=== PATIENT | female | born 1955 | race Caucasian/White ===

== ENCOUNTER 2016-04-24 15:33 | Inpatient (IN) ==
[2016-04-24] MEDS ORDERED: 0.9 % Sodium Chloride 1,000 ML IVC SCH (15:45)
--- NOTE | 2016-04-24 15:47 | Emergency Department Note ---
Disposition Clinical Impression: Sepsis Qualifiers: Sepsis type: sepsis due to unspecified organism Qualified Code(s): A41.9 - Sepsis, unspecified organism UTI (urinary tract infection) Qualifiers: Urinary tract infection type: site unspecified Hematuria presence: with hematuria Qualified Code(s): N39.0 - Urinary tract infection, site not specified Disposition: Admitted As Inpatient Condition: Fair Referrals: NO,PCP [Non-Partnered Physician] - Forms: ED Satisfaction Letter Time of Disposition: 17:42 Neuro HPI - General Chief Complaint: ED Neuro Symptoms/Deficit Stated Complaint: AMS Time Seen by Provider: 04/24/16 15:38 Nursing Notes Reviewed: Yes Vital Signs Reviewed: Yes - History of Present Illness HPI Narrative: Ms. Marrero, a 61yo female, presents from home by POV with CC: altered mental status. Onset appx 1 hour prior to arrival. The patient, patient's sister-in- law, the patient's friends were driving when patient had acute onset of her symptoms in the vehicle. Preceeding symptoms: patient stated she was feeling sick. They returned home, patient vomited x1 (non-bloody, non-bilious). Both patient's [id number] and friend state that she has had previous episodes of altered mentation secondary to UTI including urosepsis; they note this event is more pronounced than the others. At baseline, patient is nonambulatory requiring wheelchair, left, etc. PMH: MS, UTI, dehydration. 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 - Related Data Home Medications: Home Medications Medication Instructions Recorded Confirmed Apixaban [Eliquis] 2.5 mg PO BID 03/02/16 03/02/16 Allergies/Adverse Reactions: Allergies Allergy/AdvReac Type Severity Reaction Status Date / Time No Known Allergies Allergy Verified 03/02/16 17:25 Limitations: ROS unobtainable due to patients medical condition Past Medical History - Past Medical History Medical history: Reports: other Psychiatric history: Reports: no psych history - Social History Smoking Status: Never smoker Smokeless Tobacco Status: No Alcohol use: Reports: none Drug use: Reports: none Course Course Narrative: On exam, patient is speaking through clenched teeth with rigid flexion of her elbows and wrists bilaterally (i.e. no unilateral weakness or paralysis). No receptive or expressive aphasia - She is alert, oriented, and able to answer questions appropriately. When a nurse on the far side of the patient's room asked for the patient's name, the patient answered appropriately, through clenched teeth. Seizure unlikely - No tonic-clonic activity plus no patient history of seizures. Per patient's family and friend, she is not ambulatory - explaining her bilateral lower extremity weakness. She does not withdraw to LE pain but voices that it hurts. Patient meets SIRS criteria: tachycardia + tachypnea. Initial concern is CVA vs UTI causing sepsis vs electrolyte disturbance. Spoke with nursing; patient urine appeared dark, cloudy, and foul smelling. CT head without contrast showed no acute intracranial abnormalities. UA shows UTI --> SEPSIS. Vital Signs Temperature 98.4 F 04/24/16 15:35 Pulse Rate 134 04/24/16 15:35 Respiratory Rate 24 04/24/16 15:35 Blood Pressure 146/93 04/24/16 15:35 O2 Sat by Pulse Oximetry 96 04/24/16 15:35 Temperature 98.4 F 04/24/16 15:35 Pulse Rate 147 04/24/16 17:02 Respiratory Rate 20 04/24/16 17:02 Blood Pressure 169/75 04/24/16 17:02 O2 Sat by Pulse Oximetry 99 04/24/16 17:02 Oxygen Delivery Oxygen Delivery Nasal Cannula Neuro Symptoms/Deficit - Medical Records Medical records reviewed: Yes I reviewed the patient's medical records. - Lab Data Lab results reviewed: Yes I reviewed the patient's lab results. Result diagrams: 04/24/16 15:39 04/24/16 15:39 Lab Results 04/24/16 04/24/16 04/24/16 Range/Units 15:39 15:39 15:39 WBC 7.0 (4.3-11.1) K/mcL RBC 5.22 H (3.82-4.97) M/mcL Hgb 14.6 (11.5-15.4) g/dL Hct 46.0 H (35.3-44.9) % MCV 88.1 (83.0-100.0) fL MCH 28.0 (28.0-33.3) pg MCHC 31.7 (31.6-35.5) g/dL RDW 13.2 (11.5-14.5) % Plt Count 278 (140-400) K/mcL MPV 8.6 L (9.4-12.4) fL Immature Gran % 1.0 (0-4) % Seg Neutrophils % 92.0 % Lymphocytes % 6.0 % Monocytes % 0.4 % Eosinophils % 0.3 % Basophils % 0.3 % Neutrophils # 6.4 (1.6-8.9) K/mcL Lymphocytes # 0.4 L (0.6-4.6) K/mcL Monocytes # 0.0 (0.0-1.3) K/mcL Eosinophils # 0.0 (0.0-0.6) K/mcL Basophils # 0.0 (0.0-0.2) K/mcL PT 13.2 H (9.4-12.1) Seconds INR 1.2 APTT 30.3 (26.0-36.0) Seconds ABG pH (7.32-7.45) pH Units ABG pCO2 (35-45) mmHg ABG pO2 (85-104) mmHg ABG HCO3 (21-27) mEQ/L ABG Total CO2 (20-26) mEq/L ABG O2 Saturation (95-98) % ABG Base Excess (-2.0 to 3.0) mEq/L Blood Gas Modality Inspired O2 % Sodium 139 (136-145) mEq/L Potassium 4.6 H (3.5-4.5) mEq/L Chloride 107 (98-109) mEq/L Carbon Dioxide 19 (19-29) mEq/L BUN 17 (7-20) mg/dL Creatinine 0.79 (0.57-1.11) mg/dL Est GFR ( Amer) > 60 (> 60) Est GFR (Non-Af Amer) > 60 (> 60) BUN/Creatinine Ratio 22 (6-26) Glucose 125 H (70-99) mg/dL Calculated Osmolality 291 (280-300) Lactic Acid (0.5-2.2) mmol/L Calcium 9.5 (8.6-10.8) mg/dL Phosphorus 3.6 (2.3-4.7) mg/dL Magnesium 2.0 (1.6-2.6) mg/dL Total Bilirubin 0.6 (0.2-1.2) mg/dL Direct Bilirubin 0.2 (0.0-0.5) mg/dL Indirect Bilirubin 0.4 (0.0-1.2) mg/dL AST 32 (5-34) Units/L ALT 14 (0-55) Units/L Alkaline Phosphatase 164 H (38-126) Units/L Troponin I (0-0.03) ng/mL Serum Total Protein 8.0 (6.0-8.3) g/dL Albumin 3.4 L (3.5-5.0) g/dL Globulin 4.6 H (2.4-3.5) g/dL Albumin/Globulin Ratio 0.7 L (1.1-2.2) Urine Color (Yellow) Urine Clarity (Clear) Urine pH (5.0-8.0) pH Units Ur Specific [place] (1.010-1.025) Urine Protein (Neg-Trace) mg/dL Urine Glucose (UA) (Normal) mg/dL Urine Ketones (Negative) mg/dL Urine Blood (Negative) Urine Nitrite (Negative) Urine Bilirubin (Negative) Urine Urobilinogen (Normal) mg/dL Ur Leukocyte Esterase (Negative) Urine Microscopic RBC (0-3) per hpf Urine Microscopic WBC (0-3) per hpf Ur Squamous Epith Cells (None-Few) per lpf Urine Bacteria (None-Few) per hpf Hyaline Casts (None-Few) per lpf Ur Culture Indicated? (NO) 04/24/16 04/24/16 04/24/16 Range/Units 15:39 15:46 16:32 WBC (4.3-11.1) K/mcL RBC (3.82-4.97) M/mcL Hgb (11.5-15.4) g/dL Hct (35.3-44.9) % MCV (83.0-100.0) fL MCH (28.0-33.3) pg MCHC (31.6-35.5) g/dL RDW (11.5-14.5) % Plt Count (140-400) K/mcL MPV (9.4-12.4) fL Immature Gran % (0-4) % Seg Neutrophils % % Lymphocytes % % Monocytes % % Eosinophils % % Basophils % % Neutrophils # (1.6-8.9) K/mcL Lymphocytes # (0.6-4.6) K/mcL Monocytes # (0.0-1.3) K/mcL Eosinophils # (0.0-0.6) K/mcL Basophils # (0.0-0.2) K/mcL PT (9.4-12.1) Seconds INR APTT (26.0-36.0) Seconds ABG pH 7.39 (7.32-7.45) pH Units ABG pCO2 36 (35-45) mmHg ABG pO2 72 L (85-104) mmHg ABG HCO3 21.8 (21-27) mEQ/L ABG Total CO2 22.9 (20-26) mEq/L ABG O2 Saturation 94 L (95-98) % ABG Base Excess -2.6 L (-2.0 to 3.0) mEq/L Blood Gas Modality N/C Inspired O2 28 % Sodium (136-145) mEq/L Potassium (3.5-4.5) mEq/L Chloride (98-109) mEq/L Carbon Dioxide (19-29) mEq/L BUN (7-20) mg/dL Creatinine (0.57-1.11) mg/dL Est GFR ( Amer) (> 60) Est GFR (Non-Af Amer) (> 60) BUN/Creatinine Ratio (6-26) Glucose (70-99) mg/dL Calculated Osmolality (280-300) Lactic Acid (0.5-2.2) mmol/L Calcium (8.6-10.8) mg/dL Phosphorus (2.3-4.7) mg/dL Magnesium (1.6-2.6) mg/dL Total Bilirubin (0.2-1.2) mg/dL Direct Bilirubin (0.0-0.5) mg/dL Indirect Bilirubin (0.0-1.2) mg/dL AST (5-34) Units/L ALT (0-55) Units/L Alkaline Phosphatase (38-126) Units/L Troponin I 0.00 (0-0.03) ng/mL Serum Total Protein (6.0-8.3) g/dL Albumin (3.5-5.0) g/dL Globulin (2.4-3.5) g/dL Albumin/Globulin Ratio (1.1-2.2) Urine Color Yellow (Yellow) Urine Clarity Turbid A (Clear) Urine pH 5.5 (5.0-8.0) pH Units Ur Specific [place] 1.012 (1.010-1.025) Urine Protein 30 H (Neg-Trace) mg/dL Urine Glucose (UA) Normal (Normal) mg/dL Urine Ketones Negative (Negative) mg/dL Urine Blood Large H (Negative) Urine Nitrite Negative (Negative) Urine Bilirubin Negative (Negative) Urine Urobilinogen Normal (Normal) mg/dL Ur Leukocyte Esterase Large H (Negative) Urine Microscopic RBC TNTC H (0-3) per hpf Urine Microscopic WBC TNTC H (0-3) per hpf Ur Squamous Epith Cells Moderate H (None-Few) per lpf Urine Bacteria Many H (None-Few) per hpf Hyaline Casts None Seen (None-Few) per lpf Ur Culture Indicated? YES A (NO) 04/24/16 Range/Units 17:15 WBC (4.3-11.1) K/mcL RBC (3.82-4.97) M/mcL Hgb (11.5-15.4) g/dL Hct (35.3-44.9) % MCV (83.0-100.0) fL MCH (28.0-33.3) pg MCHC (31.6-35.5) g/dL RDW (11.5-14.5) % Plt Count (140-400) K/mcL MPV (9.4-12.4) fL Immature Gran % (0-4) % Seg Neutrophils % % Lymphocytes % % Monocytes % % Eosinophils % % Basophils % % Neutrophils # (1.6-8.9) K/mcL Lymphocytes # (0.6-4.6) K/mcL Monocytes # (0.0-1.3) K/mcL Eosinophils # (0.0-0.6) K/mcL Basophils # (0.0-0.2) K/mcL PT (9.4-12.1) Seconds INR APTT (26.0-36.0) Seconds ABG pH (7.32-7.45) pH Units ABG pCO2 (35-45) mmHg ABG pO2 (85-104) mmHg ABG HCO3 (21-27) mEQ/L ABG Total CO2 (20-26) mEq/L ABG O2 Saturation (95-98) % ABG Base Excess (-2.0 to 3.0) mEq/L Blood Gas Modality Inspired O2 % Sodium (136-145) mEq/L Potassium (3.5-4.5) mEq/L Chloride (98-109) mEq/L Carbon Dioxide (19-29) mEq/L BUN (7-20) mg/dL Creatinine (0.57-1.11) mg/dL Est GFR ( Amer) (> 60) Est GFR (Non-Af Amer) (> 60) BUN/Creatinine Ratio (6-26) Glucose (70-99) mg/dL Calculated Osmolality (280-300) Lactic Acid 3.2 H (0.5-2.2) mmol/L Calcium (8.6-10.8) mg/dL Phosphorus (2.3-4.7) mg/dL Magnesium (1.6-2.6) mg/dL Total Bilirubin (0.2-1.2) mg/dL Direct Bilirubin (0.0-0.5) mg/dL Indirect Bilirubin (0.0-1.2) mg/dL AST (5-34) Units/L ALT (0-55) Units/L Alkaline Phosphatase (38-126) Units/L Troponin I (0-0.03) ng/mL Serum Total Protein (6.0-8.3) g/dL Albumin (3.5-5.0) g/dL Globulin (2.4-3.5) g/dL Albumin/Globulin Ratio (1.1-2.2) Urine Color (Yellow) Urine Clarity (Clear) Urine pH (5.0-8.0) pH Units Ur Specific [place] (1.010-1.025) Urine Protein (Neg-Trace) mg/dL Urine Glucose (UA) (Normal) mg/dL Urine Ketones (Negative) mg/dL Urine Blood (Negative) Urine Nitrite (Negative) Urine Bilirubin (Negative) Urine Urobilinogen (Normal) mg/dL Ur Leukocyte Esterase (Negative) Urine Microscopic RBC (0-3) per hpf Urine Microscopic WBC (0-3) per hpf Ur Squamous Epith Cells (None-Few) per lpf Urine Bacteria (None-Few) per hpf Hyaline Casts (None-Few) per lpf Ur Culture Indicated? (NO) - Radiology Data Radiology results reviewed: Yes I reviewed the patient's radiology results. - EKG Data EKG attestation: Yes I reviewed and interpreted this EKG. EKG results narrative: EKG data 04/24/16 at 15:45 shows sinus tachycardia with a rate of 133. Left axis. Normal intervals. Nonspecific ST-T changes. Compared to previous dated 04/04/2015 showing no acute ischemic changes in comparison. TPA Checklist - LKW: 3-4.5 hrs Add. Contraindications Patient/family understanding: The patient/family members have been counseled and understood the risk, benefit , and alternatives of treatment.
[2016-04-24 15:49] LABS: ABG Base Excess -2.6 mEq/L (-2.0 to 3.0); ABG HCO3 21.8 mEQ/L (21-27); ABG Oxygen Saturation 94 % (95-98); ABG PCO2 36 mmHg (35-45); ABG PH 7.39 pH Units (7.32-7.45); ABG PO2 72 mmHg (85-104); ABG TCO2 22.9 mEq/L (20-26)
[2016-04-24 15:50] LABS: Blood Gas FiO2 28 %
[2016-04-24 15:52] LABS: Basophils % 0.3 %; Eosinophils % 0.3 %; Hemoglobin 14.6 g/dL (11.5-15.4); Lymphocytes # 0.4 K/mcL (0.6-4.6); Mean Corpuscular HGB Conc 31.7 g/dL (31.6-35.5); Mean Corpuscular Volume 88.1 fL (83.0-100.0); Mean Platelet Volume 8.6 fL (9.4-12.4); Monocytes % 0.4 %; Neutrophils # 6.4 K/mcL (1.6-8.9); Platelet Count 278 K/mcL (140-400); Red Blood Count 5.22 M/mcL (3.82-4.97); Red Cell Distribution Width 13.2 % (11.5-14.5)
[2016-04-24 15:57] LABS: INR 1.2; Prothrombin Time 13.2 Seconds (9.4-12.1)
[2016-04-24 16:00] LABS: Activated Partial Thrombo Time 30.3 Seconds (26.0-36.0)
[2016-04-24] MEDS ORDERED: *HR* LORazepam 2 MG/ML VIAL IVP ONE (16:05)
[2016-04-24 16:08] LABS: Alanine Aminotransferase 14 Units/L (0-55); Albumin 3.4 g/dL (3.5-5.0); Albumin/Globulin Ratio 0.7 (1.1-2.2); Alkaline Phosphatase 164 Units/L (38-126); Aspartate Amino Transferase 32 Units/L (5-34); BUN/Creatinine Ratio 22 (6-26); Bilirubin,Direct 0.2 mg/dL (0.0-0.5); Bilirubin,Indirect 0.4 mg/dL (0.0-1.2); Bilirubin,Total 0.6 mg/dL (0.2-1.2); Blood Urea Nitrogen 17 mg/dL (7-20); Calcium 9.5 mg/dL (8.6-10.8); Carbon Dioxide 19 mEq/L (19-29); Chloride 107 mEq/L (98-109); Globulin 4.6 g/dL (2.4-3.5); Glucose 125 mg/dL (70-99); Osmolality,Calculated 291 (280-300); Phosphorous 3.6 mg/dL (2.3-4.7); Sodium 139 mEq/L (136-145); eGFR For African Americans > 60 (> 60); eGFR For Non-African Americans > 60 (> 60)
[2016-04-24 16:14] LABS: Potassium 4.6 mEq/L (3.5-4.5)
--- NOTE | 2016-04-24 16:31 | Emergency Department Note ---
Disposition Clinical Impression: Sepsis, UTI (urinary tract infection) Disposition: Admitted As Inpatient Condition: Fair General Adult HPI - General Chief complaint: ED Neuro Symptoms/Deficit Stated complaint: AMS Time Seen by Provider: 04/24/16 15:38 Source: patient Limitations: physical limitation - History of Present Illness Pain Scale: 0 - Related Data Home Medications Medication Instructions Recorded Confirmed Apixaban [Eliquis] 5 mg PO DAILY 03/02/16 04/24/16 Modafinil [Provigil] 100 mg PO DAILY PRN 04/24/16 04/24/16 Allergies Allergy/AdvReac Type Severity Reaction Status Date / Time No Known Allergies Allergy Verified 03/02/16 17:25 Past Medical History - Past Medical History Medical history: Reports: other Psychiatric history: Reports: no psych history - Social History Smoking Status: Never smoker Smokeless Tobacco Status: No Alcohol use: Reports: none Drug use: Reports: none Physical Exam - General Limitations: physical limitation General appearance: alert, in no apparent distress Course - Reevaluation(s) Reevaluation #1: Patient presents to emergency room with a report of altered mental status. I spoke with family members who were present with the patient when she started getting sick. They were driving in a car when the patient started saying that she was feeling sick. They ended up taking her home and she started getting sick with vomiting. When she arrives here she has vomitus on her shirt and as were moving her over to the gurney she has a large diarrheal bowel movement. As we evaluate the patient we see that she has clenched teeth and her speech is abnormal because she speaking through these clenched teeth, however everything she says is appropriate. Furthermore she answers all questions appropriately, she even calls out her name when the nurse on the other side of the room asked another nurse what the patient's name was. So we are not seeing a receptive aphasia and we are not seeing an expressive aphasia. Patient is lying in the bed with both of her arms clenched up. They are drawn up so hard it was difficult for the tach to get the patient's shirt off and get the gown on. So here we are not seeing weakness of the upper extremities at all. Furthermore I do not think this represents seizure activity because both arms are clenched yet the patient is conscious. We found no lateralizing signs on the extremity examination as the patient moved both arms. She was not really able to move either leg but family and friends at the bedside are telling me that this is normal because the patient has multiple sclerosis and is essentially bedridden and transfers to a wheelchair for movement. This picture is not indicative of an acute CVA, therefore I did not call a stroke alert. According to family she is done something similar to this a couple of times in the past and it has always been related to an infection, particularly urinary tract infection. I initiated a septic workup and we will get a head CT as well. I am wondering if there is not some carpopedal spasm going on here as result of some hyperventilation so we did give the patient a milligram of Ativan as well to calm her down and we are waiting to see the effect of that treatment. At this time the patient is hemodynamically stable and again shows no signs of acute CVA. Time: 16:31 Reevaluation #2: Workup comes back showing a negative head CT. There is clearly indication of urinary tract infection based on this Sigala catheter urine specimen. Patient has a history of presenting like this with UTIs in the past. I suspect the infectious issue aggravates her multiple sclerosis. After having been given Ativan her arms are relaxed and moving and her jaw is no longer clenched but her speech is still mumbling although she answers questions appropriately and follows commands appropriately. We started Rocephin to treat the infection and will be arranging to have the patient admitted to the hospital. Time: 17:29 Vital Signs Temperature 98.4 F 04/24/16 15:35 Pulse Rate 134 04/24/16 15:35 Respiratory Rate 24 04/24/16 15:35 Blood Pressure 146/93 04/24/16 15:35 O2 Sat by Pulse Oximetry 96 04/24/16 15:35 Temperature 97.5 F L 04/26/16 11:53 Pulse Rate 97 04/26/16 11:53 Respiratory Rate 18 04/26/16 11:53 Blood Pressure 134/86 04/26/16 11:53 O2 Sat by Pulse Oximetry 97 04/26/16 12:48 Oxygen Delivery Oxygen Delivery Nasal Cannula Medical Decision Making - Lab Data Result diagrams: 04/26/16 05:01 04/26/16 05:01 Lab Results 04/24/16 04/24/16 04/24/16 Range/Units 15:00 15:34 15:39 WBC 7.0 (4.3-11.1) K/mcL RBC 5.22 H (3.82-4.97) M/mcL Hgb 14.6 (11.5-15.4) g/dL Hct 46.0 H (35.3-44.9) % MCV 88.1 (83.0-100.0) fL MCH 28.0 (28.0-33.3) pg MCHC 31.7 (31.6-35.5) g/dL RDW 13.2 (11.5-14.5) % Plt Count 278 (140-400) K/mcL MPV 8.6 L (9.4-12.4) fL Immature Gran % 1.0 (0-4) % Seg Neutrophils % 92.0 % Lymphocytes % 6.0 % Monocytes % 0.4 % Eosinophils % 0.3 % Basophils % 0.3 % Neutrophils # 6.4 (1.6-8.9) K/mcL Lymphocytes # 0.4 L (0.6-4.6) K/mcL Monocytes # 0.0 (0.0-1.3) K/mcL Eosinophils # 0.0 (0.0-0.6) K/mcL Basophils # 0.0 (0.0-0.2) K/mcL PT (9.4-12.1) Seconds INR APTT (26.0-36.0) Seconds ABG pH (7.32-7.45) pH Units ABG pCO2 (35-45) mmHg ABG pO2 (85-104) mmHg ABG HCO3 (21-27) mEQ/L ABG Total CO2 (20-26) mEq/L ABG O2 Saturation (95-98) % ABG Base Excess (-2.0 to 3.0) mEq/L Blood Gas Modality Inspired O2 % Sodium (136-145) mEq/L Potassium (3.5-4.5) mEq/L Chloride (98-109) mEq/L Carbon Dioxide (19-29) mEq/L BUN (7-20) mg/dL Creatinine (0.57-1.11) mg/dL Est GFR ( Amer) (> 60) Est GFR (Non-Af Amer) (> 60) BUN/Creatinine Ratio (6-26) Glucose (70-99) mg/dL POC Glucose 122 H (58-89) Est Mean Plasma Glucose 91 mg/dl Hemoglobin A1c 4.8 ( - 5.6) % Calculated Osmolality (280-300) Lactic Acid (0.5-2.2) mmol/L Calcium (8.6-10.8) mg/dL Phosphorus (2.3-4.7) mg/dL Magnesium (1.6-2.6) mg/dL Total Bilirubin (0.2-1.2) mg/dL Direct Bilirubin (0.0-0.5) mg/dL Indirect Bilirubin (0.0-1.2) mg/dL AST (5-34) Units/L ALT (0-55) Units/L Alkaline Phosphatase (38-126) Units/L Creatine Kinase (29-168) Units/L Troponin I (0-0.03) ng/mL Serum Total Protein (6.0-8.3) g/dL Albumin (3.5-5.0) g/dL Globulin (2.4-3.5) g/dL Albumin/Globulin Ratio (1.1-2.2) Prolactin (5.18-26.53) ng/mL Urine Color (Yellow) Urine Clarity (Clear) Urine pH (5.0-8.0) pH Units Ur Specific [place] (1.010-1.025) Urine Protein (Neg-Trace) mg/dL Urine Glucose (UA) (Normal) mg/dL Urine Ketones (Negative) mg/dL Urine Blood (Negative) Urine Nitrite (Negative) Urine Bilirubin (Negative) Urine Urobilinogen (Normal) mg/dL Ur Leukocyte Esterase (Negative) Urine Microscopic RBC (0-3) per hpf Urine Microscopic WBC (0-3) per hpf Ur Squamous Epith Cells (None-Few) per lpf Urine Bacteria (None-Few) per hpf Hyaline Casts (None-Few) per lpf Ur Culture Indicated? (NO) Urine Opiates Screen (Ysdozx=408) ng/mL Ur Barbiturates Screen (Mjprqa=981) ng/mL Ur Phencyclidine Scrn (Cutoff=25) ng/mL Ur Amphetamines Screen (Azzkas=2809) ng/mL U Benzodiazepines Scrn (Fciguu=492) ng/mL Urine Cocaine Screen (Cutoff= 300) ng/mL U Marijuana (THC) Screen (Cutoff = 50) ng/mL A. baumannii (TEM-PCR) (Not Detect) Virgie albicans (PCR) (Not Detect) C. glabrata (PCR) (Not Detect) C. krusei (PCR) (Not Detect) C. parapsilosis (PCR) (Not Detect) C. tropicalis (PCR) (Not Detect) Enterobacteriac sp PCR (Not Detect) E. cloacae complex PCR (Not Detect) Enterococcus sp PCR (Not Detect) E. coli (PCR) (Not Detect) H. influenzae DNA (Not Detect) Klebsiella oxytoca PCR (Not Detect) Klebsiella pneumoniae (Not Detect) Listeria (PCR) (Not Detect) N. meningitidis (PCR) (Not Detect) Proteus species (PCR) (Not Detect) Serratia marcescens PCR (Not Detect) Staphylococcus sp PCR (Not Detect) Staph aureus (PCR) (Not Detect) MRS (TEM-PCR) (Not Detect) Streptococcus sp PCR (Not Detect) Group A Strep DNA (Not Detect) Group B Strep (PCR) (Not Detect) Strep pneumoniae (PCR) (Not Detect) P. aeruginosa (TEM-PCR) (Not Detect) VRE (PCR) (Not Detect) KPC (blaKPC) Detect PCR (Not Detect) 04/24/16 04/24/16 04/24/16 Range/Units 15:39 15:39 15:39 WBC (4.3-11.1) K/mcL RBC (3.82-4.97) M/mcL Hgb (11.5-15.4) g/dL Hct (35.3-44.9) % MCV (83.0-100.0) fL MCH (28.0-33.3) pg MCHC (31.6-35.5) g/dL RDW (11.5-14.5) % Plt Count (140-400) K/mcL MPV (9.4-12.4) fL Immature Gran % (0-4) % Seg Neutrophils % % Lymphocytes % % Monocytes % % Eosinophils % % Basophils % % Neutrophils # (1.6-8.9) K/mcL Lymphocytes # (0.6-4.6) K/mcL Monocytes # (0.0-1.3) K/mcL Eosinophils # (0.0-0.6) K/mcL Basophils # (0.0-0.2) K/mcL PT 13.2 H (9.4-12.1) Seconds INR 1.2 APTT 30.3 (26.0-36.0) Seconds ABG pH (7.32-7.45) pH Units ABG pCO2 (35-45) mmHg ABG pO2 (85-104) mmHg ABG HCO3 (21-27) mEQ/L ABG Total CO2 (20-26) mEq/L ABG O2 Saturation (95-98) % ABG Base Excess (-2.0 to 3.0) mEq/L Blood Gas Modality Inspired O2 % Sodium 139 (136-145) mEq/L Potassium 4.6 H (3.5-4.5) mEq/L Chloride 107 (98-109) mEq/L Carbon Dioxide 19 (19-29) mEq/L BUN 17 (7-20) mg/dL Creatinine 0.79 (0.57-1.11) mg/dL Est GFR ( Amer) > 60 (> 60) Est GFR (Non-Af Amer) > 60 (> 60) BUN/Creatinine Ratio 22 (6-26) Glucose 125 H (70-99) mg/dL POC Glucose (58-89) Est Mean Plasma Glucose mg/dl Hemoglobin A1c ( - 5.6) % Calculated Osmolality 291 (280-300) Lactic Acid (0.5-2.2) mmol/L Calcium 9.5 (8.6-10.8) mg/dL Phosphorus 3.6 (2.3-4.7) mg/dL Magnesium 2.0 (1.6-2.6) mg/dL Total Bilirubin 0.6 (0.2-1.2) mg/dL Direct Bilirubin 0.2 (0.0-0.5) mg/dL Indirect Bilirubin 0.4 (0.0-1.2) mg/dL AST 32 (5-34) Units/L ALT 14 (0-55) Units/L Alkaline Phosphatase 164 H (38-126) Units/L Creatine Kinase 17 L (29-168) Units/L Troponin I 0.00 (0-0.03) ng/mL Serum Total Protein 8.0 (6.0-8.3) g/dL Albumin 3.4 L (3.5-5.0) g/dL Globulin 4.6 H (2.4-3.5) g/dL Albumin/Globulin Ratio 0.7 L (1.1-2.2) Prolactin 44.78 H (5.18-26.53) ng/mL Urine Color (Yellow) Urine Clarity (Clear) Urine pH (5.0-8.0) pH Units Ur Specific [place] (1.010-1.025) Urine Protein (Neg-Trace) mg/dL Urine Glucose (UA) (Normal) mg/dL Urine Ketones (Negative) mg/dL Urine Blood (Negative) Urine Nitrite (Negative) Urine Bilirubin (Negative) Urine Urobilinogen (Normal) mg/dL Ur Leukocyte Esterase (Negative) Urine Microscopic RBC (0-3) per hpf Urine Microscopic WBC (0-3) per hpf Ur Squamous Epith Cells (None-Few) per lpf Urine Bacteria (None-Few) per hpf Hyaline Casts (None-Few) per lpf Ur Culture Indicated? (NO) Urine Opiates Screen (Gcuulf=435) ng/mL Ur Barbiturates Screen (Nltdwq=779) ng/mL Ur Phencyclidine Scrn (Cutoff=25) ng/mL Ur Amphetamines Screen (Xbgevj=0748) ng/mL U Benzodiazepines Scrn (Ggsdji=554) ng/mL Urine Cocaine Screen (Cutoff= 300) ng/mL U Marijuana (THC) Screen (Cutoff = 50) ng/mL A. baumannii (TEM-PCR) (Not Detect) Virgie albicans (PCR) (Not Detect) C. glabrata (PCR) (Not Detect) C. krusei (PCR) (Not Detect) C. parapsilosis (PCR) (Not Detect) C. tropicalis (PCR) (Not Detect) Enterobacteriac sp PCR (Not Detect) E. cloacae complex PCR (Not Detect) Enterococcus sp PCR (Not Detect) E. coli (PCR) (Not Detect) H. influenzae DNA (Not Detect) Klebsiella oxytoca PCR (Not Detect) Klebsiella pneumoniae (Not Detect) Listeria (PCR) (Not Detect) N. meningitidis (PCR) (Not Detect) Proteus species (PCR) (Not Detect) Serratia marcescens PCR (Not Detect) Staphylococcus sp PCR (Not Detect) Staph aureus (PCR) (Not Detect) MRS (TEM-PCR) (Not Detect) Streptococcus sp PCR (Not Detect) Group A Strep DNA (Not Detect) Group B Strep (PCR) (Not Detect) Strep pneumoniae (PCR) (Not Detect) P. aeruginosa (TEM-PCR) (Not Detect) VRE (PCR) (Not Detect) KPC (blaKPC) Detect PCR (Not Detect) 04/24/16 04/24/16 04/24/16 Range/Units 15:46 16:32 16:32 WBC (4.3-11.1) K/mcL RBC (3.82-4.97) M/mcL Hgb (11.5-15.4) g/dL Hct (35.3-44.9) % MCV (83.0-100.0) fL MCH (28.0-33.3) pg MCHC (31.6-35.5) g/dL RDW (11.5-14.5) % Plt Count (140-400) K/mcL MPV (9.4-12.4) fL Immature Gran % (0-4) % Seg Neutrophils % % Lymphocytes % % Monocytes % % Eosinophils % % Basophils % % Neutrophils # (1.6-8.9) K/mcL Lymphocytes # (0.6-4.6) K/mcL Monocytes # (0.0-1.3) K/mcL Eosinophils # (0.0-0.6) K/mcL Basophils # (0.0-0.2) K/mcL PT (9.4-12.1) Seconds INR APTT (26.0-36.0) Seconds ABG pH 7.39 (7.32-7.45) pH Units ABG pCO2 36 (35-45) mmHg ABG pO2 72 L (85-104) mmHg ABG HCO3 21.8 (21-27) mEQ/L ABG Total CO2 22.9 (20-26) mEq/L ABG O2 Saturation 94 L (95-98) % ABG Base Excess -2.6 L (-2.0 to 3.0) mEq/L Blood Gas Modality N/C Inspired O2 28 % Sodium (136-145) mEq/L Potassium (3.5-4.5) mEq/L Chloride (98-109) mEq/L Carbon Dioxide (19-29) mEq/L BUN (7-20) mg/dL Creatinine (0.57-1.11) mg/dL Est GFR ( Amer) (> 60) Est GFR (Non-Af Amer) (> 60) BUN/Creatinine Ratio (6-26) Glucose (70-99) mg/dL POC Glucose (58-89) Est Mean Plasma Glucose mg/dl Hemoglobin A1c ( - 5.6) % Calculated Osmolality (280-300) Lactic Acid (0.5-2.2) mmol/L Calcium (8.6-10.8) mg/dL Phosphorus (2.3-4.7) mg/dL Magnesium (1.6-2.6) mg/dL Total Bilirubin (0.2-1.2) mg/dL Direct Bilirubin (0.0-0.5) mg/dL Indirect Bilirubin (0.0-1.2) mg/dL AST (5-34) Units/L ALT (0-55) Units/L Alkaline Phosphatase (38-126) Units/L Creatine Kinase (29-168) Units/L Troponin I (0-0.03) ng/mL Serum Total Protein (6.0-8.3) g/dL Albumin (3.5-5.0) g/dL Globulin (2.4-3.5) g/dL Albumin/Globulin Ratio (1.1-2.2) Prolactin (5.18-26.53) ng/mL Urine Color Yellow (Yellow) Urine Clarity Turbid A (Clear) Urine pH 5.5 (5.0-8.0) pH Units Ur Specific [place] 1.012 (1.010-1.025) Urine Protein 30 H (Neg-Trace) mg/dL Urine Glucose (UA) Normal (Normal) mg/dL Urine Ketones Negative (Negative) mg/dL Urine Blood Large H (Negative) Urine Nitrite Negative (Negative) Urine Bilirubin Negative (Negative) Urine Urobilinogen Normal (Normal) mg/dL Ur Leukocyte Esterase Large H (Negative) Urine Microscopic RBC TNTC H (0-3) per hpf Urine Microscopic WBC TNTC H (0-3) per hpf Ur Squamous Epith Cells Moderate H (None-Few) per lpf Urine Bacteria Many H (None-Few) per hpf Hyaline Casts None Seen (None-Few) per lpf Ur Culture Indicated? YES A (NO) Urine Opiates Screen Negative (Hdigoa=191) ng/mL Ur Barbiturates Screen Negative (Jjojov=134) ng/mL Ur Phencyclidine Scrn Negative (Cutoff=25) ng/mL Ur Amphetamines Screen Negative (Owgwwi=0144) ng/mL U Benzodiazepines Scrn Negative (Oahehu=613) ng/mL Urine Cocaine Screen Negative (Cutoff= 300) ng/mL U Marijuana (THC) Screen Negative (Cutoff = 50) ng/mL A. baumannii (TEM-PCR) (Not Detect) Virgie albicans (PCR) (Not Detect) C. glabrata (PCR) (Not Detect) C. krusei (PCR) (Not Detect) C. parapsilosis (PCR) (Not Detect) C. tropicalis (PCR) (Not Detect) Enterobacteriac sp PCR (Not Detect) E. cloacae complex PCR (Not Detect) Enterococcus sp PCR (Not Detect) E. coli (PCR) (Not Detect) H. influenzae DNA (Not Detect) Klebsiella oxytoca PCR (Not Detect) Klebsiella pneumoniae (Not Detect) Listeria (PCR) (Not Detect) N. meningitidis (PCR) (Not Detect) Proteus species (PCR) (Not Detect) Serratia marcescens PCR (Not Detect) Staphylococcus sp PCR (Not Detect) Staph aureus (PCR) (Not Detect) MRS (TEM-PCR) (Not Detect) Streptococcus sp PCR (Not Detect) Group A Strep DNA (Not Detect) Group B Strep (PCR) (Not Detect) Strep pneumoniae (PCR) (Not Detect) P. aeruginosa (TEM-PCR) (Not Detect) VRE (PCR) (Not Detect) KPC (blaKPC) Detect PCR (Not Detect) 04/24/16 04/24/16 Range/Units 17:15 17:15 WBC (4.3-11.1) K/mcL RBC (3.82-4.97) M/mcL Hgb (11.5-15.4) g/dL Hct (35.3-44.9) % MCV (83.0-100.0) fL MCH (28.0-33.3) pg MCHC (31.6-35.5) g/dL RDW (11.5-14.5) % Plt Count (140-400) K/mcL MPV (9.4-12.4) fL Immature Gran % (0-4) % Seg Neutrophils % % Lymphocytes % % Monocytes % % Eosinophils % % Basophils % % Neutrophils # (1.6-8.9) K/mcL Lymphocytes # (0.6-4.6) K/mcL Monocytes # (0.0-1.3) K/mcL Eosinophils # (0.0-0.6) K/mcL Basophils # (0.0-0.2) K/mcL PT (9.4-12.1) Seconds INR APTT (26.0-36.0) Seconds ABG pH (7.32-7.45) pH Units ABG pCO2 (35-45) mmHg ABG pO2 (85-104) mmHg ABG HCO3 (21-27) mEQ/L ABG Total CO2 (20-26) mEq/L ABG O2 Saturation (95-98) % ABG Base Excess (-2.0 to 3.0) mEq/L Blood Gas Modality Inspired O2 % Sodium (136-145) mEq/L Potassium (3.5-4.5) mEq/L Chloride (98-109) mEq/L Carbon Dioxide (19-29) mEq/L BUN (7-20) mg/dL Creatinine (0.57-1.11) mg/dL Est GFR ( Amer) (> 60) Est GFR (Non-Af Amer) (> 60) BUN/Creatinine Ratio (6-26) Glucose (70-99) mg/dL POC Glucose (58-89) Est Mean Plasma Glucose mg/dl Hemoglobin A1c ( - 5.6) % Calculated Osmolality (280-300) Lactic Acid 3.2 H (0.5-2.2) mmol/L Calcium (8.6-10.8) mg/dL Phosphorus (2.3-4.7) mg/dL Magnesium (1.6-2.6) mg/dL Total Bilirubin (0.2-1.2) mg/dL Direct Bilirubin (0.0-0.5) mg/dL Indirect Bilirubin (0.0-1.2) mg/dL AST (5-34) Units/L ALT (0-55) Units/L Alkaline Phosphatase (38-126) Units/L Creatine Kinase (29-168) Units/L Troponin I (0-0.03) ng/mL Serum Total Protein (6.0-8.3) g/dL Albumin (3.5-5.0) g/dL Globulin (2.4-3.5) g/dL Albumin/Globulin Ratio (1.1-2.2) Prolactin (5.18-26.53) ng/mL Urine Color (Yellow) Urine Clarity (Clear) Urine pH (5.0-8.0) pH Units Ur Specific [place] (1.010-1.025) Urine Protein (Neg-Trace) mg/dL Urine Glucose (UA) (Normal) mg/dL Urine Ketones (Negative) mg/dL Urine Blood (Negative) Urine Nitrite (Negative) Urine Bilirubin (Negative) Urine Urobilinogen (Normal) mg/dL Ur Leukocyte Esterase (Negative) Urine Microscopic RBC (0-3) per hpf Urine Microscopic WBC (0-3) per hpf Ur Squamous Epith Cells (None-Few) per lpf Urine Bacteria (None-Few) per hpf Hyaline Casts (None-Few) per lpf Ur Culture Indicated? (NO) Urine Opiates Screen (Noisah=805) ng/mL Ur Barbiturates Screen (Xgtlhm=433) ng/mL Ur Phencyclidine Scrn (Cutoff=25) ng/mL Ur Amphetamines Screen (Bqzscl=0978) ng/mL U Benzodiazepines Scrn (Noqumy=914) ng/mL Urine Cocaine Screen (Cutoff= 300) ng/mL U Marijuana (THC) Screen (Cutoff = 50) ng/mL A. baumannii (TEM-PCR) Not Detected (Not Detect) Virgie albicans (PCR) Not Detected (Not Detect) C. glabrata (PCR) Not Detected (Not Detect) C. krusei (PCR) Not Detected (Not Detect) C. parapsilosis (PCR) Not Detected (Not Detect) C. tropicalis (PCR) Not Detected (Not Detect) Enterobacteriac sp PCR DETECTED A (Not Detect) E. cloacae complex PCR Not Detected (Not Detect) Enterococcus sp PCR Not Detected (Not Detect) E. coli (PCR) DETECTED A (Not Detect) H. influenzae DNA Not Detected (Not Detect) Klebsiella oxytoca PCR Not Detected (Not Detect) Klebsiella pneumoniae Not Detected (Not Detect) Listeria (PCR) Not Detected (Not Detect) N. meningitidis (PCR) Not Detected (Not Detect) Proteus species (PCR) Not Detected (Not Detect) Serratia marcescens PCR Not Detected (Not Detect) Staphylococcus sp PCR Not Detected (Not Detect) Staph aureus (PCR) Not Detected (Not Detect) MRS (TEM-PCR) N/A (Not Detect) Streptococcus sp PCR Not Detected (Not Detect) Group A Strep DNA Not Detected (Not Detect) Group B Strep (PCR) Not Detected (Not Detect) Strep pneumoniae (PCR) Not Detected (Not Detect) P. aeruginosa (TEM-PCR) Not Detected (Not Detect) VRE (PCR) N/A (Not Detect) KPC (blaKPC) Detect PCR Not Detected (Not Detect) Attestation Statement - Attestation Attestation: I, Dr. Cheung, examined this patient [id number] and my medical decision- making was reviewed with Dr. Lee, Resident Physician. I agree with the documented findings, disposition and treatment plan as described except to the extent set forth below. Please see my progress notes for details.
[2016-04-24 16:42] LABS: Bilirubin,Urine Negative (Negative); Blood,Urine Large (Negative); Clarity,Urine Turbid (Clear); Color,Urine Yellow (Yellow); Glucose,Urine (UA) Normal (Normal); Ketones,Urine Negative (Negative); Leukocyte Esterase,Urine Large (Negative); Nitrite,Urine Negative (Negative); PH,Urine 5.5 pH Units (5.0-8.0); Protein,Urine 30 mg/dL (Neg-Trace); Specific Gravity,Urine 1.012 (1.010-1.025); Urobilinogen,Urine Normal (Normal)
[2016-04-24 16:43] LABS: Bacteria,Urine Many per hpf (None-Few); Hyaline Casts,Urine None Seen per lpf (None-Few); RBC,Urine TNTC per hpf (0-3); Squamous Epithelial Cell,Urine Moderate per lpf (None-Few); WBC,Urine TNTC per hpf (0-3)
[2016-04-24 18:15] LABS: Creatine Kinase 17 Units/L (29-168)
[2016-04-24 18:34] LABS: Prolactin 44.78 ng/mL (5.18-26.53)
[2016-04-24] MEDS ORDERED: Ipratropium/Albuterol Neb 3 ML IH PRN (19:54)
[2016-04-24] MEDS ORDERED: Naloxone 0.4 MG/ML INJ IVP PRN (19:54)
[2016-04-24] MEDS ORDERED: *HR* Morphine 2 MG/ML SYRINGE IVP PRN (19:54)
[2016-04-24] MEDS ORDERED: Ondansetron 4 MG/2 ML VIAL IVP PRN (19:54)
[2016-04-24] MEDS ORDERED: *HR* OxyCODONE Immed Rel 5 MG TABLET PO PRN (19:54)
[2016-04-24] MEDS ORDERED: Benzonatate 100 MG CAPSULE PO PRN (19:54)
[2016-04-24] MEDS ORDERED: Acetaminophen 325 MG TABLET PO PRN (19:54)
[2016-04-24] MEDS ORDERED: *HR* LORazepam 2 MG/ML VIAL IVP PRN (19:54)
--- NOTE | 2016-04-24 20:18 | Internal Med History&Physical ---
Date of Encounter: 04/24/16 Time of Encounter: 20:00 Assessment and Plan (1) Altered mental status Current visit: Yes Status: Acute . Qualifiers: Altered mental status type: transient alteration of awareness Qualified Code(s): R40.4 - Transient alteration of awareness (2) Encephalopathy acute Current visit: Yes Status: Acute . (3) Delirium due to general medical condition Current visit: Yes Status: Acute . (4) History of recurrent UTI (urinary tract infection) Current visit: Yes Status: Chronic . (5) Chronic anticoagulation Current visit: Yes Status: Chronic . (6) Obesity (BMI 30-39.9) Current visit: Yes Status: Chronic . (7) Tonic seizure Current visit: Yes Status: Acute . (8) Sepsis Current visit: Yes Status: Acute . Qualifiers: Sepsis type: sepsis due to unspecified organism Qualified Code(s): A41.9 - Sepsis, unspecified organism (9) UTI (urinary tract infection) Current visit: Yes Status: Acute . Qualifiers: Urinary tract infection type: site unspecified Hematuria presence: with hematuria Qualified Code(s): N39.0 - Urinary tract infection, site not specified; R31.9 - Hematuria, unspecified (10) Folate deficiency Current visit: Yes Status: Chronic . (11) History of deep vein thrombosis (DVT) of lower extremity Current visit: Yes Status: Chronic . (12) Vitamin D deficiency Current visit: Yes Status: Chronic . (13) Debility, unspecified Current visit: Yes Status: Acute . (14) Bedridden Current visit: Yes Status: Chronic . (15) History of multiple sclerosis Current visit: Yes Status: Chronic . Internal Medicine - H&P: HPI Chief complaint: Altered mental status Admitted From: Emergency Dept Plans for Post Hospital Care: Home History of present illness: Ms. Vega is a 61 year old female with history significant for end-stage refractory multiple sclerosis, H/O DVT+PE, chronic anticoagulation (Eliquis), hypersomnia/sleepiness, debility multifactorial/bedridden, folic acid deficiency , vitamin D deficiency, osteoarthritis, osteopenia, neurogenic bladder/ incontinence, H/O frequent UTIs, obesity, nonsmoker The patient was visited and interviewed and examined. The patient was found to be acutely encephalopathic. Mild delirium. Garbled speech. Manifesting acute sedation status post intravenous Ativan for seizure activity. Presents thus as a limited historian of circumstances and events. The patient is admitted to [facility] via the emergency department initially presented in the company of family with concern pertaining to acute alteration in mental status. The patient's family members were driving in a car when the patient began to experience a feeling of Nausea and Lightheadedness. They Have Returned Home and She Became Acutely Ill with Intractable Nausea and nonbloody, nonbilious Vomiting. On arrival to the emergency department before being transferred by diann to her examination room she became incontinent and had a large diarrheal bowel movement. She then began to manifest a tonic-seizure with clenched teeth with arms, elbows and wrists bilaterally held close to body in a rigid,flexion, tonic posture. She was unable to move arms or legs or torso in this patient posturing. There is no focal lateralizing processes a history of long-standing multiple sclerosis was suspected proven refractory to medical interventions. She has been characterized by family as being essentially bedridden and requiring distance in all activities of daily living considering how to care for mobility. The family of further volunteer that patient has had similar episodes of acute unresponsiveness and a rigid posturing and alteration in mental status associated with the infections particularly urinary tract infections at least on 2 other occasions. It was no report of any prodrome of fevers chills or sweats. There is no prodromal complaints of nausea vomiting diarrhea. There is no prodromal complaints of alteration of mental status acute unresponsiveness and weakness slurring of speech. There has been no acute changes and daily medical therapies nor dietary or recreational indiscretions reported. The patient remained alert and was able to communicate. Speaking through clenched teeth she reportedly responded to questions directed to her. Findings in the ED: Temperature 98.4 pulse 130-147 and respirations 20-24 BP 146-169/75-93 O2 saturation 96-99% 2 L nasal cannula. WBC 7 hemoglobin 14.6 hematocrit 46 platelets 278,000. MPV 8.6. Differential normal. PT 13.2 INR 1.2 PTT 30.6. Metabolic panel normal. Potassium noted at 4.6. BUN 17 creatinine 0.79. Glucose 125 osmolality 291. Alkaline phosphatase 164. Albumin 3.4 protein 8.0. Globulin 4.6. Arterial blood gas pH 7.39 PCO2 36 PO2 72 bicarbonate 21.8. O2 saturation 94% 2 L per nasal cannula. Troponin 0.00. Urinalysis turbid appearance large protein and large blood and large leukocyte esterase. RBC and WBC too numerous to count. Moderate squamous epithelial cells. Many bacteria. Portable chest x-ray showed no acute or active cardiopulmonary process. CT head/brain without contrast demonstrates no acute intracranial abnormality. No evidence of acute hemorrhage, mass effect, midline shift or fluid collection. No evidence of acute infarct. Parenchymal volume loss noted. Nonspecific areas of hypoattenuation within the periventricular and subcortical white matter consistent with chronic microvascular ischemic change. Orbits demonstrated no acute abnormality. Paranasal sinuses and mastoid air cells show no acute abnormality. No significant abnormality visualized skull or soft tissues. Preliminary impressions suggest acute alteration in mental status secondary to acute encephalopathy-delirium in the setting of apparent urinary tract infection. Significant pyuria and hematuria are not further rule out of associated pyelonephritis. Patient presents with a history of recurring urinary tract infections as well as episodes of sepsis associated with this. Systemic inflammatory response syndrome criterion and sepsis criteria and are met at the time of admission. Presentation was complicated by tonic seizures associated with alteration in mental status, incontinence of urine and stool, clenched teeth and rigid posturing. Patient remained hemodynamically stable fortunately throughout. Mild resting hypoxemia is apparent. Mild relative dehydration is suggested. There is no evidence thus far to suggest ACS/UA. There is no evidence thus far to suggest acute DVT or PE. There is no evidence thus far to suggest CVA/TIA. Patient is at increased risk for further acute clinical decline and morbidity given her significant frailty, presenting chief complaint , clinical findings and comorbidities. Cumulative laboratory and radiographic data base was reviewed, considered and discussed. Pertinent ancillary medical records including ECW and PCI documentation, when available, was reviewed and considered. Given the patient's presenting concerns, past medical history, clinical findings and symptoms, she is admitted at this time will undergo further evaluation and disposition. Orders were written as per the computerized physician order booker system.......................................................................... .................... Consultative opinion and will be sought as clinical circumstances justify. Initial consultation has been requested of neurology. Pain management needs will be addressed. Laboratory and radiographic data base will be updated as appropriate. Studies include: Cultures of blood and urine, CPK, cardiac injury panel, BNP, metabolic and hematologic panel, magnesium, phosphorus, ionized calcium, thyroid panel, coag profile, A1c, C-peptide, CRP, sedimentation rate, lactic acid, procalcitonin, blood gas, U/A, serologies, etc. Precautions: Aspiration, fall, seizure, delirium protocol/surveillance initiated. Telemetry with continuous hemodynamic monitoring and pulse oximetry initiated. Orthostatic vital signs. Empiric antibody coverage: Intravenous Rocephin pending culture data. Special studies: CT brain, chest x-ray, telemetry, EKG, MRI brain, EEG, ultrasound retroperitoneum. Pulmonary toilet: Incentive spirometry. When necessary aerosol bronchodilator, mucolytic, antitussive. Supplemental oxygen. When necessary corticosteroid therapy. CPAP/BiPAP supplemental oxygen delivery when necessary. Aerosol Mucomyst therapy when necessary. Fluid and electrolyte repletion efforts will proceed. Careful attention to fluid balance and renal recovery will be emphasized. Avoidance of nephrotoxic exposure and adverse drug drug interaction in the setting of impaired renal function will be monitored closely. Correction of metabolic and acid base deficit will be emphasized. Acute coronary syndrome protocols/surveillance initiated. Acute [employer] injury/seizure disorder protocols/surveillance initiated. DVT and PUD prophylaxis initiated: PPI therapy, intermittent pneumatic cuffs. Continuance of chronic anticoagulation (). Early ambulation/mobilization will be encouraged. Immunization updates recommended. Influenza and pneumococcal vaccinations as part of ongoing preventative healthcare recommendations strongly recommended. Smoking cessation counseling briefly addressed. Patient is a nonsmoker. Advanced care directive discussion briefly addressed. Patient does not declare any healthcare restrictions at this time. Cardiovascular risk appraisal and cardiovascular risk reduction efforts will be emphasized. Physical and occupational therapy may be consulted to evaluate/assess patient's functional capacity and progress mobility if her circumstances permit. Outpatient medication schedules will be reviewed, confirmed and facilitated as appropriate. Reconciliation of home treatments including adjustments, substitutions and reintroduction into the treatment regimen will address necessary maintenance therapies for chronic pre-existing medical conditions. Plan of care has been reviewed and discussed in detail with the patient. Questions addressed. Hospital course will depend upon collective clinical findings, treatment(s) response(s) and potential consultative interventions. Patient is at risk for further acute clinical decline and morbidity due to her frailty, presenting chief complaints and comorbidities. Condition is serious. Prognosis is guarded. CODE STATUS is full. Past Med Surg Social Fam HX - Past Medical History Source: old records reviewed Medical history: arthritis, DVT, hepatitis (Remote history of hepatitis in childhood. Immune.), osteoporosis, pulmonary embolus, seizures, syncope, other (Multiple sclerosis (diagnosed at age 29). Debility/bedridden/wheelchair dependent. H/O anovulatory uterine bleeding.) Psychiatric history: no psych history, anxiety, depression, other - Past Surgical History Surgical History: cholecystectomy, other - Social History Smoking Status: Never smoker Smokeless Tobacco Status: No Alcohol use: none Drug use: none Occupational status: retired, disabled Current living situation: With Family Activity Level: Wheelchair bound, Bed bound (Has not walked in over 16 years due to advanced multiple sclerosis.), Mostly sedentary Recent Out of Country Travel Within the Last 8 Weeks: No Exposure or Possible Exposure to Illness During Travel: No Internal Medicine - H&P: Meds Apixaban [Eliquis] 5 mg PO DAILY 03/02/16 [History] Modafinil [Provigil] 100 mg PO DAILY PRN 04/24/16 [History] Allergies No Known Allergies Allergy (Verified 03/02/16 17:25) ROS unobtainable: due to mental status All Systems PM: A 10-system review of systems was performed and is negative for pertinent findings except as documented above in the HPI. Patient presents acutely encephalopathic. She is a very limited historian of circumstances of events at the time of examination. Details were collected from cumulative records, ED triage, her mentation provided by family members and bedside exam. - Constitutional Constitutional: as per HPI, lethargy, malaise, weakness, other, no chills, no fever(s), no night sweats - EENT Eyes: as per HPI, no change in vision, no discharge, no pain, no photophobia Ears: as per HPI, no ear discharge, no ear pain, no tinnitus Nose, mouth and throat: as per HPI, no dysphagia, no nasal discharge, no neck pain, no sore throat - Cardiovascular Cardiovascular ROS IM: as per HPI, no chest pain, no diaphoresis, no dyspnea, no lightheadedness, no palpitations, no syncope - Respiratory Respiratory: as per HPI, no cough, no dyspnea, no wheezing, no excessive phlegm production - Gastrointestinal Gastrointestinal: as per HPI, change in bowel habits, diarrhea, fecal incontinence, nausea, vomiting, other, no abdominal pain, no hematemesis, no hematochezia, no melena - Genitourinary Genitourinary: as per HPI, urinary incontinence, other, no change in urinary stream, no dysuria, no flank pain, no hematuria - Musculoskeletal Musculoskeletal ROS IM: as per HPI, muscle weakness, other, no numbness, no tingling - Integumentary Integumentary IM: as per HPI, no rash, no unusual bruising - Neurological Neurological ROS: as per HPI, abnormal movements, abnormal speech, confusion, convulsions, other, no focal weakness, no numbness, no tingling, no tremor(s) - Psychiatric Psychiatric: as per HPI, other - Endocrine Endocrine IM: as per HPI, fatigue, other - Hematologic/Lymphatic Hematologic/Lymphatic: as per HPI, no easy bruising - Allergic/Immunologic Allergic/Immunologic: as per HPI - Constitutional Vitals: Temp Pulse Resp BP Pulse Ox 98.1 F 136 20 126/86 97 04/24/16 20:02 04/24/16 20:02 04/24/16 20:02 04/24/16 20:02 04/24/16 20:02 General appearance: Present: obese, severe distress. Absent: cooperative, A&O X 2, answers questions appropriately Exam: Tablet examination patient had received intravenous Ativan in the ED. As a consequence she was more lethargic, poorly responsive throughout examination. Age garbled. Arousable to noxious stimuli. Quantify degree of coherence and orientation difficult to degree of generalized weakness and debility and inattentiveness. Family volunteered that that had been the recurring outcome to the benzodiazepines that her past. - Head Head exam: Present: atraumatic, normocephalic - Eye Eye exam: Present: EOMI, PERRL, conjuntiva pink, sclera anicteric Pupils: Present: normal accommodation, PERRL - ENT ENT exam: Present: mucous membranes moist, normal external ear exam, normal oropharynx - Neck Neck exam general surgery: Present: full ROM, supple, trachea midline. Absent: lymphadenopathy, tenderness, nuchal rigidity, thyromegaly - Respiratory Respiratory exam: Present: decreased breath sounds, CTAB, tachypnea. Absent: accessory muscle use, rales, rhonchi, stridor, wheezes - Cardiovascular Cardiovascular exam: Present: distant heart sounds, RRR, +S1, +S2, tachycardia. Absent: diastolic murmur, gallop, rubs, systolic murmur - GI/Abdominal GI/Abdominal exam: Present: diminished bowel sounds, soft, no peritoneal signs. Absent: distended, tenderness - Extremities Exam Extremities exam: Present: warm, radial pulses palpable and symetrical. Absent : calf tenderness, cyanotic, pedal edema - Neurological Exam Neurological exam: Present: alert, altered, CN II-XII intact, motor sensory deficit. Absent: oriented X3, pronater drift, facial droop, speech deficit - Expanded Neurological Exam Neurological exam expanded: Present: ataxia, inattentive, protecting the airway. Absent: expressive aphasia, receptive aphasia Patient oriented to: Present: person. Absent: place, time Speech: Present: garbled Coma Scale Eye Opening: To Voice Coma Scale Motor Response: Localizes to Pain Coma Scale Verbal Response: Confused Coma Scale Total: 12 - Psychiatric Psychiatric exam: Present: anxious, depressed, normal mood - Skin Skin exam: Present: dry, intact, warm. Absent: petechiae, rash, urticaria, vesicles Internal Med - H&P Results - Labs CBC & Chem 7: 04/24/16 15:39 04/24/16 15:39 - Impressions Vital Signs Temp Pulse Resp BP Pulse Ox 04/24/16 20:02 98.1 F 136 20 126/86 97 04/24/16 19:26 98.1 F 124 16 115/79 97 04/24/16 18:49 0 F L 0 0/0 04/24/16 17:02 147 20 169/75 99 04/24/16 15:35 98.4 F 134 24 146/93 96 Intake and Output 04/24/16 04/24/16 04/24/16 07:59 15:59 23:59 Other: Weight 97.069 kg Blood Glucose* 122 128 Patient Weight 04/24/16 23:59 Weight 97.069 kg Short CBC 04/24/16 Range/Units 15:39 WBC 7.0 (4.3-11.1) K/mcL Hgb 14.6 (11.5-15.4) g/dL Hct 46.0 H (35.3-44.9) % Plt Count 278 (140-400) K/mcL Neutrophils # 6.4 (1.6-8.9) K/mcL BMP 04/24/16 Range/Units 15:39 Sodium 139 (136-145) mEq/L Potassium 4.6 H (3.5-4.5) mEq/L Chloride 107 (98-109) mEq/L Carbon Dioxide 19 (19-29) mEq/L BUN 17 (7-20) mg/dL Creatinine 0.79 (0.57-1.11) mg/dL Glucose 125 H (70-99) mg/dL Calcium 9.5 (8.6-10.8) mg/dL Cardiac Enzymes 04/24/16 Range/Units 15:39 Troponin I 0.00 (0-0.03) ng/mL Liver Function 04/24/16 Range/Units 15:39 Total Bilirubin 0.6 (0.2-1.2) mg/dL Direct Bilirubin 0.2 (0.0-0.5) mg/dL AST 32 (5-34) Units/L ALT 14 (0-55) Units/L Alkaline Phosphatase 164 H (38-126) Units/L Albumin 3.4 L (3.5-5.0) g/dL Urine 04/24/16 Range/Units 16:32 Urine Color Yellow (Yellow) Urine Clarity Turbid A (Clear) Urine pH 5.5 (5.0-8.0) pH Units Ur Specific [place] 1.012 (1.010-1.025) Urine Protein 30 H (Neg-Trace) mg/dL Urine Glucose (UA) Normal (Normal) mg/dL 04/24/16 15:46 ABG pH 7.39 ABG pCO2 36 ABG pO2 72 L ABG HCO3 21.8 ABG Total CO2 22.9 ABG O2 Saturation 94 L ABG Base Excess -2.6 L Abnormal lab results RBC 5.22 M/mcL (3.82-4.97) H 04/24/16 15:39 Hct 46.0 % (35.3-44.9) H 04/24/16 15:39 MPV 8.6 fL (9.4-12.4) L 04/24/16 15:39 Lymphocytes # 0.4 K/mcL (0.6-4.6) L 04/24/16 15:39 PT 13.2 Seconds (9.4-12.1) H 04/24/16 15:39 ABG pO2 72 mmHg (85-104) L 04/24/16 15:46 ABG O2 Saturation 94 % (95-98) L 04/24/16 15:46 ABG Base Excess -2.6 mEq/L (-2.0 to 3.0) L 04/24/16 15:46 Potassium 4.6 mEq/L (3.5-4.5) H 04/24/16 15:39 Glucose 125 mg/dL (70-99) H 04/24/16 15:39 POC Glucose 128 (58-89) H 04/24/16 19:34 Lactic Acid 3.0 mmol/L (0.5-2.2) H 04/24/16 19:10 Alkaline Phosphatase 164 Units/L (38-126) H 04/24/16 15:39 Creatine Kinase 17 Units/L (29-168) L 04/24/16 15:39 Albumin 3.4 g/dL (3.5-5.0) L 04/24/16 15:39 Globulin 4.6 g/dL (2.4-3.5) H 04/24/16 15:39 Albumin/Globulin Ratio 0.7 (1.1-2.2) L 04/24/16 15:39 Prolactin 44.78 ng/mL (5.18-26.53) H 04/24/16 15:39 Urine Clarity Turbid (Clear) A 04/24/16 16:32 Urine Protein 30 mg/dL (Neg-Trace) H 04/24/16 16:32 Urine Blood Large (Negative) H 04/24/16 16:32 Ur Leukocyte Esterase Large (Negative) H 04/24/16 16:32 Urine Microscopic RBC TNTC per hpf (0-3) H 04/24/16 16:32 Urine Microscopic WBC TNTC per hpf (0-3) H 04/24/16 16:32 Ur Squamous Epith Cells Moderate per lpf (None-Few) H 04/24/16 16:32 Urine Bacteria Many per hpf (None-Few) H 04/24/16 16:32 Ur Culture Indicated? YES (NO) A 04/24/16 16:32 Allergies Allergy/AdvReac Type Severity Reaction Status Date / Time No Known Allergies Allergy Verified 03/02/16 17:25 Laboratory Results WBC 7.0 K/mcL (4.3-11.1) 04/24/16 15:39 RBC 5.22 M/mcL (3.82-4.97) H 04/24/16 15:39 Hgb 14.6 g/dL (11.5-15.4) 04/24/16 15:39 Hct 46.0 % (35.3-44.9) H 04/24/16 15:39 MCV 88.1 fL (83.0-100.0) 04/24/16 15:39 MCH 28.0 pg (28.0-33.3) 04/24/16 15:39 MCHC 31.7 g/dL (31.6-35.5) 04/24/16 15:39 RDW 13.2 % (11.5-14.5) 04/24/16 15:39 Plt Count 278 K/mcL (140-400) 04/24/16 15:39 MPV 8.6 fL (9.4-12.4) L 04/24/16 15:39 Immature Gran % 1.0 % (0-4) 04/24/16 15:39 Seg Neutrophils % 92.0 % 04/24/16 15:39 Lymphocytes % 6.0 % 04/24/16 15:39 Monocytes % 0.4 % 04/24/16 15:39 Eosinophils % 0.3 % 04/24/16 15:39 Basophils % 0.3 % 04/24/16 15:39 Neutrophils # 6.4 K/mcL (1.6-8.9) 04/24/16 15:39 Lymphocytes # 0.4 K/mcL (0.6-4.6) L 04/24/16 15:39 Monocytes # 0.0 K/mcL (0.0-1.3) 04/24/16 15:39 Eosinophils # 0.0 K/mcL (0.0-0.6) 04/24/16 15:39 Basophils # 0.0 K/mcL (0.0-0.2) 04/24/16 15:39 PT 13.2 Seconds (9.4-12.1) H 04/24/16 15:39 INR 1.2 04/24/16 15:39 APTT 30.3 Seconds (26.0-36.0) 04/24/16 15:39 ABG pH 7.39 pH Units (7.32-7.45) 04/24/16 15:46 ABG pCO2 36 mmHg (35-45) 04/24/16 15:46 ABG pO2 72 mmHg (85-104) L 04/24/16 15:46 ABG HCO3 21.8 mEQ/L (21-27) 04/24/16 15:46 ABG Total CO2 22.9 mEq/L (20-26) 04/24/16 15:46 ABG O2 Saturation 94 % (95-98) L 04/24/16 15:46 ABG Base Excess -2.6 mEq/L (-2.0 to 3.0) L 04/24/16 15:46 Blood Gas Modality N/C 04/24/16 15:46 Inspired O2 28 % 04/24/16 15:46 Sodium 139 mEq/L (136-145) 04/24/16 15:39 Potassium 4.6 mEq/L (3.5-4.5) H 04/24/16 15:39 Chloride 107 mEq/L (98-109) 04/24/16 15:39 Carbon Dioxide 19 mEq/L (19-29) 04/24/16 15:39 BUN 17 mg/dL (7-20) 04/24/16 15:39 Creatinine 0.79 mg/dL (0.57-1.11) 04/24/16 15:39 Est GFR ( Amer) > 60 (> 60) 04/24/16 15:39 Est GFR (Non-Af Amer) > 60 (> 60) 04/24/16 15:39 BUN/Creatinine Ratio 22 (6-26) 04/24/16 15:39 Glucose 125 mg/dL (70-99) H 04/24/16 15:39 POC Glucose 128 (58-89) H 04/24/16 19:34 Calculated Osmolality 291 (280-300) 04/24/16 15:39 Lactic Acid 3.0 mmol/L (0.5-2.2) H 04/24/16 19:10 Calcium 9.5 mg/dL (8.6-10.8) 04/24/16 15:39 Phosphorus 3.6 mg/dL (2.3-4.7) 04/24/16 15:39 Magnesium 2.0 mg/dL (1.6-2.6) 04/24/16 15:39 Total Bilirubin 0.6 mg/dL (0.2-1.2) 04/24/16 15:39 Direct Bilirubin 0.2 mg/dL (0.0-0.5) 04/24/16 15:39 Indirect Bilirubin 0.4 mg/dL (0.0-1.2) 04/24/16 15:39 AST 32 Units/L (5-34) 04/24/16 15:39 ALT 14 Units/L (0-55) 04/24/16 15:39 Alkaline Phosphatase 164 Units/L (38-126) H 04/24/16 15:39 Creatine Kinase 17 Units/L (29-168) L 04/24/16 15:39 Troponin I 0.00 ng/mL (0-0.03) 04/24/16 15:39 Serum Total Protein 8.0 g/dL (6.0-8.3) 04/24/16 15:39 Albumin 3.4 g/dL (3.5-5.0) L 04/24/16 15:39 Globulin 4.6 g/dL (2.4-3.5) H 04/24/16 15:39 Albumin/Globulin Ratio 0.7 (1.1-2.2) L 04/24/16 15:39 Prolactin 44.78 ng/mL (5.18-26.53) H 04/24/16 15:39 Urine Color Yellow (Yellow) 04/24/16 16:32 Urine Clarity Turbid (Clear) A 04/24/16 16:32 Urine pH 5.5 pH Units (5.0-8.0) 04/24/16 16:32 Ur Specific [place] 1.012 (1.010-1.025) 04/24/16 16:32 Urine Protein 30 mg/dL (Neg-Trace) H 04/24/16 16:32 Urine Glucose (UA) Normal mg/dL (Normal) 04/24/16 16:32 Urine Ketones Negative mg/dL (Negative) 04/24/16 16:32 Urine Blood Large (Negative) H 04/24/16 16:32 Urine Nitrite Negative (Negative) 04/24/16 16:32 Urine Bilirubin Negative (Negative) 04/24/16 16:32 Urine Urobilinogen Normal mg/dL (Normal) 04/24/16 16:32 Ur Leukocyte Esterase Large (Negative) H 04/24/16 16:32 Urine Microscopic RBC TNTC per hpf (0-3) H 04/24/16 16:32 Urine Microscopic WBC TNTC per hpf (0-3) H 04/24/16 16:32 Ur Squamous Epith Cells Moderate per lpf (None-Few) H 04/24/16 16:32 Urine Bacteria Many per hpf (None-Few) H 04/24/16 16:32 Hyaline Casts None Seen per lpf (None-Few) 04/24/16 16:32 Ur Culture Indicated? YES (NO) A 04/24/16 16:32 Impressions Chest X-Ray 04/24/16 15:42 IMPRESSION: No acute process. D/ / Cruz Shell MD / Cruz Shell MD Interpreting Provider: Cruz Shell MD Head CT 04/24/16 15:44 IMPRESSION: No acute intracranial abnormality. D/ / Joao Stanton MD / Joao Stanton MD Interpreting Provider: Joao Stanton MD
[2016-04-24 20:32] LABS: Hemoglobin A1C 4.8 %
[2016-04-24] MEDS: 0.9 % Sodium Chloride 1,000 ML IVC SCH (20:38)
[2016-04-24] MEDS ORDERED: 0.9 % Sodium Chloride 1,000 ML IVC STA (20:55)
[2016-04-24] MEDS ORDERED: *HR* Metoprolol 5 MG/5 ML VIAL IVP PRN (20:55)
[2016-04-24 21:01] LABS: Magnesium 1.5 mg/dL (1.6-2.6); Phosphorous 2.2 mg/dL (2.3-4.7)
[2016-04-24 21:23] LABS: Thyroid Stimulating Hormone 1.037 mcIU/mL (0.350-4.840)
[2016-04-24 21:36] LABS: Prolactin 8.75 ng/mL (5.18-26.53)
[2016-04-25] MEDS ORDERED: Sodium Phosphate 30 MMOL in D5% in Water 100 ML IVPB ONE (01:39)
[2016-04-25] MEDS ORDERED: Magnesium Sulfate 1 GM in D5% in Water 100 ML IVPB ONE (01:39)
[2016-04-25 04:00] LABS: Hematocrit 37.6 % (35.3-44.9); Mean Corpuscular HGB Conc 32.4 g/dL (31.6-35.5); Mean Corpuscular Volume 86.4 fL (83.0-100.0); Mean Platelet Volume 9.2 fL (9.4-12.4); Platelet Count 242 K/mcL (140-400); Red Blood Count 4.35 M/mcL (3.82-4.97); Red Cell Distribution Width 13.5 % (11.5-14.5)
[2016-04-25 04:01] LABS: Hemoglobin 12.2 g/dL (11.5-15.4)
[2016-04-25 04:12] LABS: BUN/Creatinine Ratio 24 (6-26); Blood Urea Nitrogen 17 mg/dL (7-20); Carbon Dioxide 18 mEq/L (19-29); Chloride 111 mEq/L (98-109); Glucose 154 mg/dL (70-99); Osmolality,Calculated 293 (280-300); Sodium 139 mEq/L (136-145); eGFR For African Americans > 60 (> 60); eGFR For Non-African Americans > 60 (> 60)
[2016-04-25 04:17] LABS: Potassium 2.7 mEq/L (3.5-4.5)
[2016-04-25 05:38] LABS: Acinetobacter baumannii by PCR Not Detected (Not Detect); Candida albicans by PCR Not Detected (Not Detect); Candida glabrata by PCR Not Detected (Not Detect); Candida krusei by PCR Not Detected (Not Detect); Candida parapsilosis by PCR Not Detected (Not Detect); Candida tropicalis by PCR Not Detected (Not Detect); Enterococcus by PCR Not Detected (Not Detect); Escherichia coli by PCR ***DETECTED*** (Not Detect); Klebsiella oxytoca by PCR Not Detected (Not Detect); Klebsiella pneumoniae by PCR Not Detected (Not Detect); Pseudomonas aeruginosa by PCR Not Detected (Not Detect); Serratia marcescens by PCR Not Detected (Not Detect); Staphylococcus aureus by PCR Not Detected (Not Detect); Streptococcus agalactiae(B)PCR Not Detected (Not Detect); Streptococcus by PCR Not Detected (Not Detect); Streptococcus pneumoniae PCR Not Detected (Not Detect); Streptococcus pyogenes (A) PCR Not Detected (Not Detect); blaKPC Carbapenem-Resist Gene Not Detected (Not Detect)
[2016-04-25 06:52] LABS: BUN/Creatinine Ratio 24 (6-26); Blood Urea Nitrogen 17 mg/dL (7-20); Calcium 7.9 mg/dL (8.6-10.8); Carbon Dioxide 19 mEq/L (19-29); Chloride 112 mEq/L (98-109); Glucose 142 mg/dL (70-99); Osmolality,Calculated 296 (280-300); Potassium 2.8 mEq/L (3.5-4.5); Sodium 141 mEq/L (136-145); eGFR For African Americans > 60 (> 60); eGFR For Non-African Americans > 60 (> 60)
[2016-04-25 08:45] LABS: Amphetamine Screen,Urine Negative ng/mL (Cutoff=1000); Barbiturate Screen,Urine Negative ng/mL (Cutoff=200); Benzodiazepines Screen,Urine Negative ng/mL (Cutoff=200); Cannabinoid Screen,Urine Negative ng/mL (Cutoff = 50); Cocaine Screen,Urine Negative ng/mL (Cutoff= 300); Opiate Screen,Urine Negative ng/mL (Cutoff=300); Phencyclidine Screen,Urine Negative ng/mL (Cutoff=25)
[2016-04-25] MEDS: Vitamin B Complex/Vit C/Vit E 1 EACH TABLET PO SCH (10:24)
[2016-04-25] MEDS: Thiamine (B-1) 100 MG TABLET PO SCH (10:25)
[2016-04-25] MEDS: Folic Acid 1 MG TABLET PO SCH (10:25)
[2016-04-25] MEDS: Pantoprazole 40 MG VIAL IVP SCH (10:25)
[2016-04-25] MEDS: APIXABAN 5 MG TABLET PO SCH (10:25)
--- NOTE | 2016-04-25 10:47 | Cardiology Consult Note ---
Date of Encounter: 04/25/16 Time of Encounter: 10:44 Assessment and Plan (1) Elevated troponin Current Visit: Yes Status: Acute Borderline, flat and adynamic 0.06, 0.07 in setting of sepsis--WBC 56.2, UTI. Likely demand ischemia, nondiagnostic for ACS. Pt denies chest pain or dyspnea. Check echo to evaluate structure and function. Medical management. Pt denies any coronary hx. If no significant findings on echo, anticipate sign off from cardiac standpoint. (2) Sepsis Current Visit: Yes Status: Acute UTI--blood cultures also positive. Management per primary team. Tachycardic and WBC today 56.2. Qualifiers: Sepsis type: sepsis due to unspecified organism Qualified Code(s): A41.9 - Sepsis, unspecified organism (3) UTI (urinary tract infection) Current Visit: Yes Status: Acute Management per primary team. Qualifiers: Urinary tract infection type: site unspecified Hematuria presence: with hematuria Qualified Code(s): N39.0 - Urinary tract infection, site not specified; R31.9 - Hematuria, unspecified (4) Hypokalemia Current Visit: Yes Status: Acute 2.8. Will replace. Discussion w patient/family: The assessment and plan as outlined above was discussed with the patient and/or family members who expressed understanding and agreement. All questions were answered. Thank you for involving us in the care of your patient. Please call with any questions. I will discuss all the above with Dr. Javed and make changes as necessary. History of Present Illness Consult date: 04/25/16 Requesting physician: Wander Iyer Consult reason: elevated troponin Chief complaint: n/v History of present illness: Ms. Vega is a 61 year old female with hx of MS and recurrent UTIs, DVT/PE that was brought to ED by family reportedly for mental status changes, nausea/ vomiting and reportedly concern of seizure--which pt denies. She was found to have a UTI--WBC was 7.0 yesterday and is 56.2 today. K 2.8. Troponins 0.06, 0.07. Pt denies any cardiac history, denies chest pain or dyspnea. She is not active due to her progressive MS. Past Med Surg Social Fam HX - Past Medical History Medical history: arthritis, DVT, hepatitis (Remote history of hepatitis in childhood. Immune.), osteoporosis, pulmonary embolus, seizures, syncope, other (Multiple sclerosis (diagnosed at age 29). Debility/bedridden/wheelchair dependent. H/O anovulatory uterine bleeding.) Psychiatric history: no psych history, anxiety, depression, other - Past Surgical History Surgical History: cholecystectomy, other - Social History Smoking Status: Never smoker Smokeless Tobacco Status: No Alcohol use: none Drug use: none Medications and Allergies Apixaban [Eliquis] 5 mg PO DAILY 03/02/16 [History] Modafinil [Provigil] 100 mg PO DAILY PRN 04/24/16 [History] Allergies No Known Allergies Allergy (Verified 03/02/16 17:25) All Systems Review: A 10-system review of systems was performed and is negative for pertinent findings except as documented above in the HPI. - Gastrointestinal Gastrointestinal: nausea Physical Examination Vital Signs, Last 4 Hours Temp Pulse Resp BP Pulse Ox 04/25/16 10:13 97.5 F L 100 16 126/82 98 04/25/16 06:56 97.7 F 104 16 107/73 99 Vital Signs Temp Pulse Resp BP Pulse Ox 04/25/16 10:13 97.5 F L 100 16 126/82 98 04/25/16 06:56 97.7 F 104 16 107/73 99 04/25/16 04:00 98.0 F 102 14 101/62 98 04/25/16 01:47 97.7 F 112 14 121/78 98 04/24/16 23:30 99.1 F 120 14 108/68 99 04/24/16 23:25 18 98 04/24/16 21:30 98.2 F 124 16 88/67 94 L 04/24/16 20:02 98.1 F 136 20 126/86 97 04/24/16 19:26 98.1 F 124 16 115/79 97 04/24/16 18:49 0 F L 0 0/0 04/24/16 17:02 147 20 169/75 99 04/24/16 15:35 98.4 F 134 24 146/93 96 Intake and Output 04/24/16 04/25/16 04/25/16 23:59 07:59 15:59 Intake Total 1000 / 1000 Output Total 700 / 700 300 / 300 Balance 300 / 300 -300 / -300 Intake: IV Fluids 1000 / 1000 0.9 % Sodium Chloride 1, 1000 / 1000 000 ML @ 3750 mls/hr IVC .Q16M STA Rx#:[id number] Output: Urine 300 / 300 Catheter 700 / 700 Other: Blood Glucose* 128 121 General: Conversant, No Apparent Distress HEENT: Atraumatic, Normocephaly, Mucus Membranes Moist Neck: No JVD, Normal carotid pulses Cardiac: Reg Rate and Rhythm, Normal S1 and S2, No Murmur Lungs: Normal Breath Sounds, No Wheeze, Rales, Rhonchi Neuro: Alert and responsive, No focal deficits noted Abdomen: Soft, Non-Tender Skin: No rashes noted on visualized skin Musculoskeletal: No Chest Wall Tenderness Extremities: No Clubbing, No Cyanosis, No Edema, Normal Pulses Results 04/25/16 03:50 04/25/16 06:24 Lab Results 04/24/16 04/24/16 04/25/16 20:36 20:36 03:50 WBC Hgb Hct Plt Count Sodium Potassium Chloride Carbon Dioxide BUN Creatinine Glucose Calcium Magnesium 1.5 L Troponin I 0.06 H* 0.07 H* TSH 1.037 04/25/16 04/25/16 04/25/16 03:50 03:50 06:24 WBC 56.2 H* D Hgb 12.2 D Hct 37.6 Plt Count 242 Sodium 139 141 Potassium 2.7 L D 2.8 L Chloride 111 H 112 H Carbon Dioxide 18 L 19 BUN 17 17 Creatinine 0.72 0.70 Glucose 154 H 142 H Calcium 8.0 L D 7.9 L Magnesium Troponin I TSH Short CBC 04/25/16 04/24/16 Range/Units 03:50 15:39 WBC 56.2 H* D 7.0 (4.3-11.1) K/mcL Hgb 12.2 D 14.6 (11.5-15.4) g/dL Hct 37.6 46.0 H (35.3-44.9) % Plt Count 242 278 (140-400) K/mcL Neutrophils # 6.4 (1.6-8.9) K/mcL BMP 04/25/16 04/25/16 04/24/16 Range/Units 06:24 03:50 15:39 Sodium 141 139 139 (136-145) mEq/L Potassium 2.8 L 2.7 L D 4.6 H (3.5-4.5) mEq/L Chloride 112 H 111 H 107 (98-109) mEq/L Carbon Dioxide 19 18 L 19 (19-29) mEq/L BUN 17 17 17 (7-20) mg/dL Creatinine 0.70 0.72 0.79 (0.57-1.11) mg/dL Glucose 142 H 154 H 125 H (70-99) mg/dL Calcium 7.9 L 8.0 L D 9.5 (8.6-10.8) mg/dL Cardiac Enzymes 04/25/16 04/24/16 04/24/16 Range/Units 03:50 20:36 15:39 Troponin I 0.07 H* 0.06 H* 0.00 (0-0.03) ng/mL Liver Function 04/24/16 Range/Units 15:39 Total Bilirubin 0.6 (0.2-1.2) mg/dL Direct Bilirubin 0.2 (0.0-0.5) mg/dL AST 32 (5-34) Units/L ALT 14 (0-55) Units/L Alkaline Phosphatase 164 H (38-126) Units/L Albumin 3.4 L (3.5-5.0) g/dL Urine 04/24/16 Range/Units 16:32 Urine Color Yellow (Yellow) Urine Clarity Turbid A (Clear) Urine pH 5.5 (5.0-8.0) pH Units Ur Specific Enc[place] 1.012 (1.010-1.025) Urine Protein 30 H (Neg-Trace) mg/dL Urine Glucose (UA) Normal (Normal) mg/dL Impressions Chest X-Ray 04/24/16 15:42 IMPRESSION: No acute process. D/ / Cruz Shell MD / Cruz Shell MD Interpreting Provider: Cruz Shell MD Head CT 04/24/16 15:44 IMPRESSION: No acute intracranial abnormality. D/ / Joao Stanton MD / Joao Stanton MD Interpreting Provider: Joao Stanton MD Brain MRI 04/24/16 21:00 IMPRESSION: No acute intracranial process. Severe supra and infratentorial chronic demyelination without acute component or, new lesions. No parenchymal brain volume loss for age. D/ / Mary Kate Naranjo MD / Mary Kate Naranjo MD Interpreting Provider: Mary Kate Naranjo MD Retroperitoneum Ultrasound 04/24/16 22:15 IMPRESSION: 1. No acute abnormality. D/ / Leobardo Elliott MD / Leobardo Elliott MD Interpreting Provider: Leobardo Elliott MD Active Medications Acetaminophen (Tylenol) 650 mg PO Q6HR PRN PRN Reason: Mild Pain (1-3) Stop: 10/24/16 19:55 Albuterol/Ipratropium (Duoneb) 3 ml IH [id number] PRN; Protocol PRN Reason: Shortness Of Breath/Wheezing Stop: 10/24/16 19:55 Apixaban (Eliquis) 5 mg PO DAILY ANKIT Stop: 10/25/16 09:01 Last Admin: 04/25/16 10:25 Dose: 5 mg Benzonatate (Tessalon) 200 mg PO TID PRN PRN Reason: Cough Stop: 10/24/16 19:55 Docusate Sodium (Colace) 100 mg PO BID PRN PRN Reason: Constipation Stop: 10/24/16 19:55 Folic Acid (Folic Acid) 1 mg PO DAILY ANKIT Stop: 10/25/16 09:01 Last Admin: 04/25/16 10:25 Dose: 1 mg Hydralazine HCl (Hydralazine) 10 mg IVP Q6HR PRN PRN Reason: Hypertension Stop: 10/24/16 20:56 Sodium Chloride (0.9 % Sodium Chloride) 1,000 mls @ 100 mls/hr IVC .Q10H ANKIT Stop: 10/24/16 20:01 Last Admin: 04/24/16 20:38 Dose: 100 mls/hr Ceftriaxone Sodium 2,000 mg/ (Dextrose) 100 mls @ 200 mls/hr IVPB Q24H ANKIT Stop: 10/25/16 09:01 Last Admin: 04/25/16 10:25 Dose: 200 mls/hr Lorazepam (Ativan) 1 mg IVP Q8HR PRN PRN Reason: Seizure Activity Stop: 10/24/16 19:55 Metoprolol Tartrate (Lopressor) 5 mg IVP Q4H PRN PRN Reason: Tachyarrhythmias Stop: 10/24/16 20:56 Modafinil (Provigil) 100 mg PO DAILY PRN PRN Reason: sleepiness Stop: 10/24/16 20:14 Morphine Sulfate (Morphine Sulfate) 2 mg IVP Q4HR PRN PRN Reason: Severe Pain (7-10) Stop: 10/24/16 19:55 Naloxone HCl (Narcan) 0.4 mg IVP Q2MIN PRN PRN Reason: Opioid Reversal Stop: 10/24/16 19:55 Ondansetron HCl (Zofran) 4 mg IVP Q6HR PRN PRN Reason: Nausea And Vomiting Stop: 10/24/16 19:55 Oxycodone HCl (Roxicodone) 10 mg PO Q6HR PRN PRN Reason: Moderate Pain (4-6) Stop: 10/24/16 19:55 Pantoprazole Sodium (Protonix) 40 mg IVP DAILY [facility] Stop: 10/25/16 09:01 Last Admin: 04/25/16 10:25 Dose: 40 mg Thiamine HCl (Vitamin B-1) 100 mg PO DAILY [facility] Stop: 10/25/16 09:01 Last Admin: 04/25/16 10:25 Dose: 100 mg Vitamin B Complex/Vit C/Vit E (Stresstab) 1 each PO DAILY ANKIT Stop: 10/25/16 09:01 Last Admin: 04/25/16 10:24 Dose: 1 each - Imaging and Cardiology Chest Xray: report reviewed Echo: pending - EKG Interpretation EKG results cardiology: personally reviewed (Sinus tach, rate 133), other (12 hour tele AVG HR 102, sinus tach) Consult Discharge Plan - Plan Referrals: Brown Guy MD [Primary Care Provider] -
--- NOTE | 2016-04-25 10:50 | ECHO - Doppler Report ---
Echo with Saline Contrast Name: Anabela Vega Date of Study: 04/25/2016 Date: 1955 Ht: 70.0 in Medical Record#: [id number] Age: 61 Wt: 214.0 lb Gender: Female BSA: 2.15 Order #: [id number] Location: [facility] Room #: [facility] Reading Physician: Suzan Reilly DO Tipple Operator: Christopher Zafar RN Ordering Physician: Wander Iyer MD Primary Physician: Brown Guy MD Indications: Altered Mental Status Impressions: LVEF 55%. Normal left ventricular size and systolic function. There is evidence of mild diastolic dysfunction of the left ventricle. Normal right ventricular size and function. No significant valvular dysfunction. No pulmonary hypertension. There is no evidence of a PFO with agitated saline contrast. Left Ventricular Wall Motion: Rest Echo Findings All wall segments showed normal motion. Findings: Study Quality * Technically challenging with suboptimal echo images. ECG Findings * Normal sinus rhythm and Sinus tachycardia. Left Ventricle * Normal LV chamber size, wall thickness and function. * Mild left ventricular diastolic dysfunction. * LVEF 55%. * Not all segments were well visualized. Aortic Valve * No aortic regurgitation. * No aortic stenosis. * Aortic valve not well visualized. Mitral Valve * No mitral regurgitation. * Normal mitral valve structure. * No mitral stenosis. * Mild mitral annular calcification Tricuspid Valve * Tricuspid valve not well visualized. * Trace tricuspid regurgitation. Pulmonic Valve * Pulmonic valve is not well visualized. * No pulmonic stenosis. * No pulmonic regurgitation. Pulmonary Artery * Pulmonary artery not well visualized. Right Ventricle * Normal right ventricular structure and function. Left Atrium * Normal left atrial size. Right Atrium * Normal right atrial size. IVC * The IVC is not well evaluated. Pericardium * There is no pericardial effusion present. Interatrial Septum * No evidence of PFO with agitated saline contrast. Aorta * Not well visualized. History Family History of CAD Contrast: Agitated saline 20 ml. Measurements: BP: 107/ 73 2D Normal Values IVSd: 1.20 cm 0.6 - 1.0 cm LVIDd: 2.40 cm 3.7 - 5.6 cm LVPWd: 1.20 cm 0.6 - 1.1 cm LVIDs: 1.80 cm 1.5 - 3.6 cm LA: 2.40 cm 2.0 - 4.0cm %FS: 25.00 cm >25 % LVOT Diam: 2.00 cm LA volume: 71 Mitral Valve Peak E:.65 m/sec Peak A:1.05 m/sec E/A Ratio:0.6 Peak E' Lat Alexandru:5.56 cm/s Peak E' Med Alexandru:5.65 cm/s E/E' Lat Ratio:11.6 E/E' Med Ratio:11.5 Tricuspid Valve TV Regurg Peak Grad: 9.00mmHg TV Regurg Peak Alexandru: 1.50m/sec Updated by Suzan Reilly on 04/25/2016 10:43:08 AM electronically signed on 04/25/2016 10:46:19 AM with status of Final [employer] Robbins: 1=Normal, 2=Hypokinesis, 3=Akinesis, 4=Dyskinesis, 5=Aneurysmal, 6=Hyperkinetic, X=Not Visualized (Blank)=Missing
--- NOTE | 2016-04-25 13:12 | Electrocardiograph Report ---
[facility] Cardiology Test Date: 2016-04-24 Pat Name: TROY COLE Department: 104 Room: 29 Gender: F Manager Bank: KIRA : 1955 Requested By: Cb Aragon Order Number: [id number] Reading MD: Cornelio Rowan MD Measurements Intervals Leland Rate: 133 P: 42 MD: 150 QRS: -6 QRSD: 82 T: 56 QT: 364 QTc: 442 Interpretive Statements SINUS TACHYCARDIA BASELINE ARTIFACT Electronically Signed On 04-25-16 13:12:16 EST by Cornelio Rowan MD
--- NOTE | 2016-04-25 13:24 | Neurology - Consult Note ---
<Dov Cordova - Last Filed: 04/25/16 15:05> Date of Encounter: 04/25/16 Time of Encounter: 13:24 Assessment and Plan (1) Seizure-like activity Current Visit: Yes Status: Acute - reported seizure like activity described as tonic rigidity of the upper extremity with clenched teeth, however, reportedly patient was conscious and alert during this episode and was relieved after Ativan - no history of seizure disorder - EEG performed 04/25/16, reviewed and interpreted by Dr. Nixon as normal without seizure activity (2) Altered mental status Current Visit: Yes Status: Acute - admitted to hospital for altered mental status, she is currently alert and oriented to person place and time - likely source is sepsis 2/2 UTI which is common in MS patient - unlikely due seizure with normal EEG or electrolyte/metabolic disturbances but abnormalities notable for hypokalemia 2.8, phosphorus 2.2 and magnesium 1.5 - CT head was unremarkable in the ED - denies history of alcohol abuse or hepatic disease Qualifiers: Altered mental status type: unspecified Qualified Code(s): R41.82 - Altered mental status, unspecified (3) Multiple sclerosis Current Visit: Yes Status: Chronic - history of MS for 30 years - displays findings of ESTRADA, dysarthria with aphasia, and left extremity weakness consistent with MS - previously followed with neurologist at [facility] but due to correction does not currently have a neurologist - since progression of MS from remitting/relapsing to progressive patient is not currently on medication - patient requested to be established with Dr. Ambrocio Bills here at [facility] (4) Sepsis Current Visit: Yes Status: Acute - likely urinary source, followed by primary team - treating with Ceftriaxone, awaiting final cultures and sensitivities Qualifiers: Sepsis type: sepsis due to unspecified organism Qualified Code(s): A41.9 - Sepsis, unspecified organism (5) UTI (urinary tract infection) Current Visit: Yes Status: Acute - treated appropriately by primary team with Ceftriaxone, sensitive on prior urine culture for E.coli growth - cultures pending, preliminary GNR - recommend hydration and consider urology referral Qualifiers: Urinary tract infection type: site unspecified Hematuria presence: with hematuria Qualified Code(s): N39.0 - Urinary tract infection, site not specified; R31.9 - Hematuria, unspecified History of Present Illness Chief complaint: Seziure/AMS/MS HPI: Ms. Vega is a 61 year old female with history of MS for 30 years (from relapsing/remitting to progressive) presents to the ED for AMS. Patient admitted to hospital for AMS, UTI, and Sepsis. Neurology consulted regarding possible seizure like activity. Patient reportedly had a brief episode of tonic seizure with unresponsiveness. Patient declines such activity. She recalls that her arms tensed up after an episode of nonbloody emesis. Per documentation in her record she had an episode of tonic like rigidity with subsequent fecal incontinence. She was talking through clenched teeth as well but remained alert during the episode responding to her name and answering questions appropriately through clenched teeth. She is currently alert and oriented to person place and time. Denies history of any seizures in the past. Denies history of cardiac, hepatic or renal disease. Currently being treated for UTI. Reports similar altered mentation a few weeks ago when she was diagnosed with an UTI at [facility]. Denies any urinary hestiancy, frequency, or dysuria. She has baseline ataxia from MS and is nonambulatory. She used to follow with a neurologist Dr. Rangel at [facility] but he retired recently. She requests to re-establish care with Dr. Ambrocio Bills here at [facility] for her MS. Patient's friend Danae is currently at bedside and reports significant improvement from yesterday to today. Patient has no current complaints at this time. Patient denies headache, changes in vision, chest pain, confusion, or nausea. Sigala catheter is currently in place. Past Med Surg Social Fam HX - Past Medical History Medical history: arthritis, DVT, hepatitis (Remote history of hepatitis in childhood. Immune.), osteoporosis, pulmonary embolus, seizures, syncope, other (Multiple sclerosis (diagnosed at age 29). Debility/bedridden/wheelchair dependent. H/O anovulatory uterine bleeding.) Psychiatric history: no psych history, anxiety, depression, other - Past Surgical History Surgical History: cholecystectomy, other - Social History Smoking Status: Never smoker Smokeless Tobacco Status: No Alcohol use: none Drug use: none Medications and Allergies Apixaban [Eliquis] 5 mg PO DAILY 03/02/16 [History] Modafinil [Provigil] 100 mg PO DAILY PRN 04/24/16 [History] Allergies No Known Allergies Allergy (Verified 03/02/16 17:25) All Systems: A 10-system review of systems was performed and is negative for pertinent findings except as documented above in the HPI. - Constitutional Constitutional ROS IM: fatigue, no fever(s) - Nose, Mouth, Throat Nose, mouth and throat: as per HPI - Cardiovascular Cardiovascular ROS IM: as per HPI - Respiratory Respiratory IM: as per HPI - Gastrointestinal Gastrointestinal: nausea, vomiting - Genitourinary Genitourinary ROS: no dysuria, no hematuria, no urinary incontinence, no urinary urgency - Musculoskeletal Musculoskeletal ROS IM: abnormal gait - Integumentary Integumentary IM: as per HPI - Neurological Neurological ROS: abnormal gait, no abnormal speech, no behavioral changes, no convulsions, no loss of vision, no syncope - Psychiatric Psychiatric general PM: as per HPI Physical Examination - Vital Signs Vital Signs: Initial Vital Signs Temp Pulse Resp BP Pulse Ox 98.4 F 134 24 146/93 96 04/24/16 15:35 04/24/16 15:35 04/24/16 15:35 04/24/16 15:35 04/24/16 15:35 - Exam Exam: patient is pleasant and in no acute distress, alert and oriented to person place and time. Clinical findings consistent with MS. She has internuclear ophthalmoplegia with left eye palsy when looking to the right. Bilateral dysmetria L > R. - Constitutional General appearance: comfortable - Neurologic Sensorimotor examination: pronator drift (due to MS and left extremity weakness) Detailed motor examination: other (significant left extremity weakness LE > UE) Motor examination - right side: 4/5: hip flexors, tibialis Anterior, quadriceps , 5/5: deltoids, biceps, triceps, wrist flexion, wrist extension, supervisor inspection and testing, toe extension (EHL), plantarflexion Motor examination - left side: 3/5: hip flexors, quadriceps, tibialis Anterior, 4/5: deltoids, biceps, triceps, wrist flexion, wrist extension, supervisor inspection and testing, toe extension (EHL), plantarflexion Detailed sensory examination: intact, light touch Reflex and gait examination: other (NONAMBULATORY) Mental Status Examination: awake, alert, oriented to person, oriented to place, oriented to time, follows commands appropriately, answers questions appropriately, no aphasia Cranial nerve examination: PERRL, visual buckner intact, sensory to face intact, mastication intact, hearing is intact symmetrically, soft palate elevates bilaterally upon phonation, flexes SCM and trapezius muscles symmetrically with full power, tongue protrudes midline Cranial Nerve Exam: partial CN III palsy: Left Cerebellar examination: dysarthria Results - Laboratory Findings CBC and BMP: 04/25/16 03:50 04/25/16 06:24 Abnormal lab findings: Abnormal lab results WBC 56.2 K/mcL (4.3-11.1) H* D 04/25/16 03:50 MPV 9.2 fL (9.4-12.4) L 04/25/16 03:50 Lymphocytes # 0.4 K/mcL (0.6-4.6) L 04/24/16 15:39 ESR 98 mm/hr (0-15) H 04/24/16 20:36 PT 13.2 Seconds (9.4-12.1) H 04/24/16 15:39 ABG pO2 72 mmHg (85-104) L 04/24/16 15:46 ABG O2 Saturation 94 % (95-98) L 04/24/16 15:46 ABG Base Excess -2.6 mEq/L (-2.0 to 3.0) L 04/24/16 15:46 Potassium 2.8 mEq/L (3.5-4.5) L 04/25/16 06:24 Chloride 112 mEq/L (98-109) H 04/25/16 06:24 Glucose 142 mg/dL (70-99) H 04/25/16 06:24 POC Glucose 109 (58-89) H 04/25/16 12:33 Calcium 7.9 mg/dL (8.6-10.8) L 04/25/16 06:24 Ionized Calcium 1.08 mmol/L (1.15-1.35) L 04/25/16 03:50 Phosphorus 2.2 mg/dL (2.3-4.7) L 04/24/16 20:36 Magnesium 1.5 mg/dL (1.6-2.6) L 04/24/16 20:36 Alkaline Phosphatase 164 Units/L (38-126) H 04/24/16 15:39 Creatine Kinase 17 Units/L (29-168) L 04/24/16 15:39 Troponin I 0.04 ng/mL (0-0.03) H* 04/25/16 10:03 C-Reactive Protein 40 mg/L (Less than 5) H 04/24/16 20:36 Albumin 3.4 g/dL (3.5-5.0) L 04/24/16 15:39 Globulin 4.6 g/dL (2.4-3.5) H 04/24/16 15:39 Albumin/Globulin Ratio 0.7 (1.1-2.2) L 04/24/16 15:39 Urine Clarity Turbid (Clear) A 04/24/16 16:32 Urine Protein 30 mg/dL (Neg-Trace) H 04/24/16 16:32 Urine Blood Large (Negative) H 04/24/16 16:32 Ur Leukocyte Esterase Large (Negative) H 04/24/16 16:32 Urine Microscopic RBC TNTC per hpf (0-3) H 04/24/16 16:32 Urine Microscopic WBC TNTC per hpf (0-3) H 04/24/16 16:32 Ur Squamous Epith Cells Moderate per lpf (None-Few) H 04/24/16 16:32 Urine Bacteria Many per hpf (None-Few) H 04/24/16 16:32 Ur Culture Indicated? YES (NO) A 04/24/16 16:32 Enterobacteriac sp PCR DETECTED (Not Detect) A 04/24/16 17:15 E. coli (PCR) DETECTED (Not Detect) A 04/24/16 17:15 Consult Discharge Plan - Plan Referrals: Brown Guy MD [Primary Care Provider] - <Zurdo Nixon - Last Filed: 04/25/16 16:45> History of Present Illness HPI: Ms. Vega is a 61 year old female All Systems: A 10-system review of systems was performed and is negative for pertinent findings except as documented above in the HPI. Physical Examination - Vital Signs Vital Signs: Initial Vital Signs Temp Pulse Resp BP Pulse Ox 98.4 F 134 24 146/93 96 04/24/16 15:35 04/24/16 15:35 04/24/16 15:35 04/24/16 15:35 04/24/16 15:35 Results - Laboratory Findings CBC and BMP: 04/25/16 03:50 04/25/16 06:24 Abnormal lab findings: Abnormal lab results WBC 56.2 K/mcL (4.3-11.1) H* D 04/25/16 03:50 MPV 9.2 fL (9.4-12.4) L 04/25/16 03:50 Lymphocytes # 0.4 K/mcL (0.6-4.6) L 04/24/16 15:39 ESR 98 mm/hr (0-15) H 04/24/16 20:36 PT 13.2 Seconds (9.4-12.1) H 04/24/16 15:39 ABG pO2 72 mmHg (85-104) L 04/24/16 15:46 ABG O2 Saturation 94 % (95-98) L 04/24/16 15:46 ABG Base Excess -2.6 mEq/L (-2.0 to 3.0) L 04/24/16 15:46 Potassium 2.8 mEq/L (3.5-4.5) L 04/25/16 06:24 Chloride 112 mEq/L (98-109) H 04/25/16 06:24 Glucose 142 mg/dL (70-99) H 04/25/16 06:24 POC Glucose 109 (58-89) H 04/25/16 12:33 Calcium 7.9 mg/dL (8.6-10.8) L 04/25/16 06:24 Ionized Calcium 1.08 mmol/L (1.15-1.35) L 04/25/16 03:50 Phosphorus 2.2 mg/dL (2.3-4.7) L 04/24/16 20:36 Magnesium 1.5 mg/dL (1.6-2.6) L 04/24/16 20:36 Alkaline Phosphatase 164 Units/L (38-126) H 04/24/16 15:39 Creatine Kinase 17 Units/L (29-168) L 04/24/16 15:39 Troponin I 0.04 ng/mL (0-0.03) H* 04/25/16 10:03 C-Reactive Protein 40 mg/L (Less than 5) H 04/24/16 20:36 Albumin 3.4 g/dL (3.5-5.0) L 04/24/16 15:39 Globulin 4.6 g/dL (2.4-3.5) H 04/24/16 15:39 Albumin/Globulin Ratio 0.7 (1.1-2.2) L 04/24/16 15:39 Urine Clarity Turbid (Clear) A 04/24/16 16:32 Urine Protein 30 mg/dL (Neg-Trace) H 04/24/16 16:32 Urine Blood Large (Negative) H 04/24/16 16:32 Ur Leukocyte Esterase Large (Negative) H 04/24/16 16:32 Urine Microscopic RBC TNTC per hpf (0-3) H 04/24/16 16:32 Urine Microscopic WBC TNTC per hpf (0-3) H 04/24/16 16:32 Ur Squamous Epith Cells Moderate per lpf (None-Few) H 04/24/16 16:32 Urine Bacteria Many per hpf (None-Few) H 04/24/16 16:32 Ur Culture Indicated? YES (NO) A 04/24/16 16:32 Enterobacteriac sp PCR DETECTED (Not Detect) A 04/24/16 17:15 E. coli (PCR) DETECTED (Not Detect) A 04/24/16 17:15
--- NOTE | 2016-04-25 14:05 | EEG/EMG/Oth Biometrics Report ---
EEG Procedure Report Date of procedure: 04/25/16 EEG Procedure: Routine EEG Procedure Note: This EEG was acquired with standard international 1020 system with EKG recording. The background EEG activity replaced by low amplitude fast activity with intermittent posterior alpha activity with best frequency up to 11Hz. The background activity was reactive to eye openings. Sleep stages were characterized by the presence of background fragmentation, vertex waves, K complexes, and sleep spindles. There are no electrographic seizures identified during this tracing. There are no epileptiform discharges and focal slowing noted during this recording. Photic stimulation produced no abnormalities. Hyperventilation procedure was not performed EKG tracing showed no significant cardiac dysrhythmia. Impression: This is essentially a normal awake and asleep EEG. Clinical Correlation: Normal EEGs, however, do not exclude epilepsy. Clinical correlation advised.
--- NOTE | 2016-04-25 14:29 | Neurology - Consult Note ---
Date of Encounter: 04/25/16 Time of Encounter: 14:28 History of Present Illness Chief complaint: Vomiting and abdominal pain and MS HPI: Ms. Vega is a 61 year old female with known diagnosis of multiple sclerosis who developed acute onset of mental status changes, vomiting and abdominal pain. Patient with known diagnosis MS and urinary incontinence, treated at [facility] by a MS specialist who has retired from practice. Patient says that on the day of admission she was feeling weak and sick and started puking and she was holding her arms at the elbow and looked as if she was having stiffening movement but she did not have a seizure. She has no history of seizure. She did not lose her consciousness. Patient was found to have UTI and elevated white blood count and has been treated for that. She has no fever now. She admits that she has difficulty controlling her urinary incontinence and at the same time she has urinary retention. She can not self catheterize therefore she has to wear pad. She states that she would like to find a local neurologist for her MS and she prefers to see Dr. Ambrocio Bills. She is dysarthric but denies any new neurological deficits. Currently she is not on any MS DMT agents. MRI of brain images reviewed and showed pattern consistent with advanced multiple sclerosis. NO contrast was ordered Past Med Surg Social Fam HX - Past Medical History Medical history: arthritis, DVT, hepatitis (Remote history of hepatitis in childhood. Immune.), osteoporosis, pulmonary embolus, seizures, syncope, other (Multiple sclerosis (diagnosed at age 29). Debility/bedridden/wheelchair dependent. H/O anovulatory uterine bleeding.) Psychiatric history: no psych history, anxiety, depression, other - Past Surgical History Surgical History: cholecystectomy, other - Social History Smoking Status: Never smoker Smokeless Tobacco Status: No Alcohol use: none Drug use: none Medications and Allergies Apixaban [Eliquis] 5 mg PO DAILY 03/02/16 [History] Modafinil [Provigil] 100 mg PO DAILY PRN 04/24/16 [History] Allergies No Known Allergies Allergy (Verified 03/02/16 17:25) All Systems: A 10-system review of systems was performed and is negative for pertinent findings except as documented above in the HPI. Physical Examination - Vital Signs Vital Signs: Initial Vital Signs Temp Pulse Resp BP Pulse Ox 98.4 F 134 24 146/93 96 04/24/16 15:35 04/24/16 15:35 04/24/16 15:35 04/24/16 15:35 04/24/16 15:35 - Constitutional General appearance: comfortable - Neurologic Sensorimotor examination: other (Grossly intact) Detailed motor examination: other (Able to use her hands bilaterally. No signfiicant focal weakness noted. Has paraplegia to her legs and unable to move her legs off the bed) Detailed sensory examination: other (Grossly intact) Posture: other (NOne) Reflex and gait examination: other (Gait not assessed) Reflexes: Biceps: 2+, Triceps: 2+, Brachioradialis: 2+, Patella: 2+ Cranial nerve examination: PERRL, EOMI, visual buckner intact, corneal reflexes brisk symmetrically, sensory to face intact, mastication intact, no facial asymmetry is present, no dysarthria (Patient has dysarthria but language content appears normal), hearing is intact symmetrically, soft palate elevates bilaterally upon phonation, gag reflex intact, flexes SCM and trapezius muscles symmetrically with full power, tongue protrudes midline, no atrophy or facial fasiculations present Cerebellar examination: performs finger to nose and heel to polanco symmetrically without ataxia (Abnormal FTN and KELLEN. Loss of Dexterity noted. ), no gait ataxia (NOt assessed), no truncal ataxia (Not assessed), no difficulty with rapid alternating movements, dysarthria Results - Laboratory Findings CBC and BMP: 04/25/16 03:50 04/25/16 06:24 Abnormal lab findings: Abnormal lab results WBC 56.2 K/mcL (4.3-11.1) H* D 04/25/16 03:50 MPV 9.2 fL (9.4-12.4) L 04/25/16 03:50 Lymphocytes # 0.4 K/mcL (0.6-4.6) L 04/24/16 15:39 ESR 98 mm/hr (0-15) H 04/24/16 20:36 PT 13.2 Seconds (9.4-12.1) H 04/24/16 15:39 ABG pO2 72 mmHg (85-104) L 04/24/16 15:46 ABG O2 Saturation 94 % (95-98) L 04/24/16 15:46 ABG Base Excess -2.6 mEq/L (-2.0 to 3.0) L 04/24/16 15:46 Potassium 2.8 mEq/L (3.5-4.5) L 04/25/16 06:24 Chloride 112 mEq/L (98-109) H 04/25/16 06:24 Glucose 142 mg/dL (70-99) H 04/25/16 06:24 POC Glucose 109 (58-89) H 04/25/16 12:33 Calcium 7.9 mg/dL (8.6-10.8) L 04/25/16 06:24 Ionized Calcium 1.08 mmol/L (1.15-1.35) L 04/25/16 03:50 Phosphorus 2.2 mg/dL (2.3-4.7) L 04/24/16 20:36 Magnesium 1.5 mg/dL (1.6-2.6) L 04/24/16 20:36 Alkaline Phosphatase 164 Units/L (38-126) H 04/24/16 15:39 Creatine Kinase 17 Units/L (29-168) L 04/24/16 15:39 Troponin I 0.04 ng/mL (0-0.03) H* 04/25/16 10:03 C-Reactive Protein 40 mg/L (Less than 5) H 04/24/16 20:36 Albumin 3.4 g/dL (3.5-5.0) L 04/24/16 15:39 Globulin 4.6 g/dL (2.4-3.5) H 04/24/16 15:39 Albumin/Globulin Ratio 0.7 (1.1-2.2) L 04/24/16 15:39 Urine Clarity Turbid (Clear) A 04/24/16 16:32 Urine Protein 30 mg/dL (Neg-Trace) H 04/24/16 16:32 Urine Blood Large (Negative) H 04/24/16 16:32 Ur Leukocyte Esterase Large (Negative) H 04/24/16 16:32 Urine Microscopic RBC TNTC per hpf (0-3) H 04/24/16 16:32 Urine Microscopic WBC TNTC per hpf (0-3) H 04/24/16 16:32 Ur Squamous Epith Cells Moderate per lpf (None-Few) H 04/24/16 16:32 Urine Bacteria Many per hpf (None-Few) H 04/24/16 16:32 Ur Culture Indicated? YES (NO) A 04/24/16 16:32 Enterobacteriac sp PCR DETECTED (Not Detect) A 04/24/16 17:15 E. coli (PCR) DETECTED (Not Detect) A 04/24/16 17:15 Consult Discharge Plan - Plan Referrals: Brown Guy MD [Primary Care Provider] -
--- NOTE | 2016-04-25 15:40 | Internal Med Progress Note ---
Date of Encounter: 04/25/16 Time of Encounter: 09:00 - Assessment and plan (1) UTI (urinary tract infection) Current Visit: Yes Status: Acute Assessment and plan: Patient has a UTI. We will continue Rocephin. Wait for final urine culture results. Qualifiers: Urinary tract infection type: site unspecified Hematuria presence: with hematuria Qualified Code(s): N39.0 - Urinary tract infection, site not specified; R31.9 - Hematuria, unspecified (2) Sepsis Current Visit: Yes Status: Acute Assessment and plan: Patient has elevated white count, tachycardia, elevated lactate acid level, consider sepsis. Etiology is probably due to UTI. - Patient was given IV fluid resuscitation. Lactate acid level get down. -Continue antibiotic treatment. -Blood culture positive for gram-negative wilmer, waiting for final result, repeated blood culture tomorrow. Qualifiers: Sepsis type: sepsis due to unspecified organism Qualified Code(s): A41.9 - Sepsis, unspecified organism (3) Encephalopathy acute Current Visit: Yes Status: Acute Assessment and plan: Possibly metabolic encephalopathy caused by sepsis. Neurology consult appreciated. Less likely seizure. We will continue antibiotics and IV fluid to treat sepsis. Mental status has improved today after treatment. Patient is at high risk because of acute altered mental status. (4) Elevated troponin Current Visit: Yes Status: Acute Assessment and plan: Considered demand ischemia. Patient has no chest pain. Cardiology consult appreciated. Will order echo per cardiology recommendation. (5) Seizure-like activity Current Visit: Yes Status: Acute Assessment and plan: Etiology is undetermined. Normal EEG. Neurology consult on case and the recommendation will be followed. (6) History of deep vein thrombosis (DVT) of lower extremity Current Visit: Yes Status: Chronic Assessment and plan: Patient is on eliquis (half dose per PCP) (7) Multiple sclerosis Current Visit: Yes Status: Chronic Assessment and plan: History of MS. Will continue treatment as outpatient after discharge. (8) Obesity (BMI 30-39.9) Current Visit: Yes Status: Chronic Assessment and plan: Need lifestyle modification (9) DVT prophylaxis Current Visit: Yes Status: Acute Assessment and plan: Patient is on eliquis. (10) Hypokalemia Current Visit: Yes Status: Acute Assessment and plan: On potassium supplement. Follow-up potassium level. - Time Spent With Patient Greater than 35 minutes - Subjective Interval history: Patient is a 61-year-old female admitted for altered mental status and sepsis, UTI. Her past medical history is significant for MS, UTI, DVT and PE. Patient was seen and examined. She is awake alert, oriented 3, slow speech due to MS. She has no fever, vital signs stable. No further seizure-like activity. No nausea, no vomiting. Neurology consult appreciated, EEG done there is no epilepsy activity on EEG. Will continue antibiotic treatment for sepsis and UTI. Closely monitoring. - Constitutional Vitals: Temp Pulse Resp BP Pulse Ox 97.5 F L 100 16 126/82 98 04/25/16 10:13 04/25/16 10:13 04/25/16 10:13 04/25/16 10:13 04/25/16 10:13 General appearance: Present: A&O X 3, obese, answers questions appropriately. Absent: cooperative, A&O X 2 - Head Head exam: Present: atraumatic, normocephalic - Eye Eye exam: Present: PERRL, conjuntiva pink, sclera anicteric Pupils: Present: PERRL - Neck Neck exam general surgery: Present: supple, trachea midline. Absent: lymphadenopathy - Respiratory Respiratory exam: Present: CTAB. Absent: accessory muscle use, rales, rhonchi, wheezes - Cardiovascular Cardiovascular exam: Present: RRR, +S1, +S2. Absent: diastolic murmur, gallop, rubs, systolic murmur - GI/Abdominal GI/Abdominal exam: Present: normal bowel sounds, soft, no peritoneal signs. Absent: distended, tenderness - Extremities Exam Extremities exam: Present: warm, radial pulses palpable and symetrical. Absent : calf tenderness, cyanotic, pedal edema - Neurological Exam Neurological exam: Present: CN II-XII intact, oriented X3, no focal deficits. Absent: pronater drift, facial droop, speech deficit Additional comments: Generalized weak of 4 limbs. - Skin Skin exam: Present: dry, intact Internal Medicine: Result - Labs CBC & Chem 7: 04/25/16 03:50 04/25/16 06:24 Labs: Short CBC 04/25/16 Range/Units 03:50 WBC 56.2 H* D (4.3-11.1) K/mcL Hgb 12.2 D (11.5-15.4) g/dL Hct 37.6 (35.3-44.9) % Plt Count 242 (140-400) K/mcL BMP 04/25/16 04/25/16 03:50 06:24 Sodium 139 141 Potassium 2.7 L D 2.8 L Chloride 111 H 112 H Carbon Dioxide 18 L 19 BUN 17 17 Creatinine 0.72 0.70 Glucose 154 H 142 H Calcium 8.0 L D 7.9 L Cardiac Enzymes 04/24/16 04/25/16 04/25/16 Range/Units 20:36 03:50 10:03 Troponin I 0.06 H* 0.07 H* 0.04 H* (0-0.03) ng/mL - ABG Interpretation ABG results: ABG ABG pH 7.39 pH Units (7.32-7.45) 04/24/16 15:46 ABG pCO2 36 mmHg (35-45) 04/24/16 15:46 ABG pO2 72 mmHg (85-104) L 04/24/16 15:46 ABG O2 Saturation 94 % (95-98) L 04/24/16 15:46 PT/INR, D-dimer PT 13.2 Seconds (9.4-12.1) H 04/24/16 15:39 - Impressions Impressions Brain MRI 04/24/16 21:00 IMPRESSION: No acute intracranial process. Severe supra and infratentorial chronic demyelination without acute component or, new lesions. No parenchymal brain volume loss for age. D/ / Mary Kate Naranjo MD / Mary Kate Naranjo MD Interpreting Provider: Mary Kate Naranjo MD Retroperitoneum Ultrasound 04/24/16 22:15 IMPRESSION: 1. No acute abnormality. D/ / Leobardo Elliott MD / Leobardo Elliott MD Interpreting Provider: Leobardo Elliott MD Consult Discharge Plan - Plan Referrals: Brown Guy MD [Primary Care Provider] -
[2016-04-26] MEDS: 0.9 % Sodium Chloride 1,000 ML IVC SCH ×2 (00:49→12:45)
[2016-04-26 05:38] LABS: Magnesium 1.6 mg/dL (1.6-2.6); Phosphorous 2.2 mg/dL (2.3-4.7)
[2016-04-26 05:42] LABS: BUN/Creatinine Ratio 28 (6-26); Blood Urea Nitrogen 16 mg/dL (7-20); Calcium 7.9 mg/dL (8.6-10.8); Carbon Dioxide 19 mEq/L (19-29); Chloride 116 mEq/L (98-109); Glucose 73 mg/dL (70-99); Osmolality,Calculated 290 (280-300); Sodium 140 mEq/L (136-145); eGFR For African Americans > 60 (> 60); eGFR For Non-African Americans > 60 (> 60)
[2016-04-26 07:17] LABS: Hematocrit 32.6 % (35.3-44.9); Hemoglobin 10.5 g/dL (11.5-15.4); Mean Corpuscular HGB Conc 32.2 g/dL (31.6-35.5); Mean Corpuscular Hemoglobin 28.5 pg (28.0-33.3); Mean Corpuscular Volume 88.6 fL (83.0-100.0); Mean Platelet Volume 10.2 fL (9.4-12.4); Platelet Count 203 K/mcL (140-400); Red Blood Count 3.68 M/mcL (3.82-4.97)
[2016-04-26 08:10] LABS: Eosinophils # 0.7 K/mcL (0.0-0.6); Lymphocytes # 3.6 K/mcL (0.6-4.6); Monocytes # 1.4 K/mcL (0.0-1.3); Neutrophils # 30.2 K/mcL (1.6-8.9); Platelet Estimate Normal (Normal)
[2016-04-26] MEDS: Vitamin B Complex/Vit C/Vit E 1 EACH TABLET PO SCH (08:58)
[2016-04-26] MEDS: Thiamine (B-1) 100 MG TABLET PO SCH (08:59)
[2016-04-26] MEDS: Folic Acid 1 MG TABLET PO SCH (08:59)
[2016-04-26] MEDS: APIXABAN 5 MG TABLET PO SCH (08:59)
[2016-04-26 10:03] LABS: blaKPC Carbapenem-Resist Gene Not Detected (Not Detect)
[2016-04-26 10:04] LABS: Acinetobacter baumannii by PCR Not Detected (Not Detect); Candida albicans by PCR Not Detected (Not Detect); Candida glabrata by PCR Not Detected (Not Detect); Candida krusei by PCR Not Detected (Not Detect); Candida parapsilosis by PCR Not Detected (Not Detect); Candida tropicalis by PCR Not Detected (Not Detect); Enterococcus by PCR Not Detected (Not Detect); Escherichia coli by PCR ***DETECTED*** (Not Detect); Klebsiella oxytoca by PCR Not Detected (Not Detect); Klebsiella pneumoniae by PCR Not Detected (Not Detect); Pseudomonas aeruginosa by PCR Not Detected (Not Detect); Serratia marcescens by PCR Not Detected (Not Detect); Staphylococcus aureus by PCR Not Detected (Not Detect); Streptococcus agalactiae(B)PCR Not Detected (Not Detect); Streptococcus by PCR Not Detected (Not Detect); Streptococcus pneumoniae PCR Not Detected (Not Detect); Streptococcus pyogenes (A) PCR Not Detected (Not Detect)
[2016-04-26] MEDS: Pantoprazole 40 MG VIAL IVP SCH (10:27)
--- NOTE | 2016-04-26 13:17 | Neurology Progress Note ---
Date of Encounter: 04/26/16 Time of Encounter: 13:14 Assessment and Plan (1) Altered mental status Current Visit: Yes Status: Acute Essentially resolved to baseline with antibiotic treatment for UTI. Please continue medical and supportive care. Patient to follow up with Dr. Ambrocio Bills for evaluation and treatment of MS. Will sign off at this time. Please call if any questions Qualifiers: Altered mental status type: unspecified Qualified Code(s): R41.82 - Altered mental status, unspecified Subjective Principal diagnosis: UTI Interval history: Patient seen and examined. Patient feeling much better and back to baseline. Objective - Constitutional Vitals: Temp Pulse Resp BP Pulse Ox 97.5 F L 97 18 134/86 97 04/26/16 11:53 04/26/16 11:53 04/26/16 11:53 04/26/16 11:53 04/26/16 12:48 - Neurological Exam Sensorimotor examination: Present: other (Grossly intact) Motor Examination: Present: other (Able to use her hands bilaterally. No signfiicant focal weakness noted. Has paraplegia to her legs and unable to move her legs off the bed) Motor examination - left side: 3/5: hip flexors, quadriceps, tibialis Anterior, 4/5: deltoids, biceps, triceps, wrist flexion, wrist extension, training and development project leader, toe extension (EHL), plantarflexion Sensation intact: Present: other (Grossly intact) Posture: Present: other (NOne) Reflex and gait examination: other (Gait not assessed) Mental Status Examination: Present: awake, alert, oriented to person, oriented to place, oriented to time, follows commands appropriately, answers questions appropriately, no aphasia Cranial nerve examination: Present: PERRL, EOMI, visual buckner intact, corneal reflexes brisk symmetrically, sensory to face intact, mastication intact, no facial asymmetry is present, no dysarthria (Patient has dysarthria but language content appears normal), hearing is intact symmetrically, soft palate elevates bilaterally upon phonation, gag reflex intact, flexes SCM and trapezius muscles symmetrically with full power, tongue protrudes midline, no atrophy or facial fasiculations present Cranial Nerve Exam: partial CN III palsy: Left Cerebellar examination: Present: performs finger to nose and heel to polanco symmetrically without ataxia (Abnormal FTN and KELLEN. Loss of Dexterity noted. ), no gait ataxia (NOt assessed), no truncal ataxia (Not assessed), no difficulty with rapid alternating movements, dysarthria - VTE Documentation of Mechanical Device: Intermittent pneumatic compression device Results - Laboratory Findings CBC and BMP: 04/26/16 05:01 04/26/16 05:01 Abnormal lab findings: Abnormal lab results WBC 35.9 K/mcL (4.3-11.1) H* 04/26/16 05:01 RBC 3.68 M/mcL (3.82-4.97) L 04/26/16 05:01 Hgb 10.5 g/dL (11.5-15.4) L D 04/26/16 05:01 Hct 32.6 % (35.3-44.9) L 04/26/16 05:01 Band Neutrophils % 10.0 % (0-4) H 04/26/16 05:01 Neutrophils # 30.2 K/mcL (1.6-8.9) H 04/26/16 05:01 Monocytes # 1.4 K/mcL (0.0-1.3) H 04/26/16 05:01 Eosinophils # 0.7 K/mcL (0.0-0.6) H 04/26/16 05:01 ESR 98 mm/hr (0-15) H 04/24/16 20:36 PT 13.2 Seconds (9.4-12.1) H 04/24/16 15:39 ABG pO2 72 mmHg (85-104) L 04/24/16 15:46 ABG O2 Saturation 94 % (95-98) L 04/24/16 15:46 ABG Base Excess -2.6 mEq/L (-2.0 to 3.0) L 04/24/16 15:46 Chloride 116 mEq/L (98-109) H 04/26/16 05:01 BUN/Creatinine Ratio 28 (6-26) H 04/26/16 05:01 Calcium 7.9 mg/dL (8.6-10.8) L 04/26/16 05:01 Ionized Calcium 1.08 mmol/L (1.15-1.35) L 04/25/16 03:50 Phosphorus 2.2 mg/dL (2.3-4.7) L 04/26/16 05:01 Alkaline Phosphatase 164 Units/L (38-126) H 04/24/16 15:39 Creatine Kinase 17 Units/L (29-168) L 04/24/16 15:39 Troponin I 0.04 ng/mL (0-0.03) H* 04/25/16 10:03 C-Reactive Protein 40 mg/L (Less than 5) H 04/24/16 20:36 Albumin 3.4 g/dL (3.5-5.0) L 04/24/16 15:39 Globulin 4.6 g/dL (2.4-3.5) H 04/24/16 15:39 Albumin/Globulin Ratio 0.7 (1.1-2.2) L 04/24/16 15:39 Urine Clarity Turbid (Clear) A 04/24/16 16:32 Urine Protein 30 mg/dL (Neg-Trace) H 04/24/16 16:32 Urine Blood Large (Negative) H 04/24/16 16:32 Ur Leukocyte Esterase Large (Negative) H 04/24/16 16:32 Urine Microscopic RBC TNTC per hpf (0-3) H 04/24/16 16:32 Urine Microscopic WBC TNTC per hpf (0-3) H 04/24/16 16:32 Ur Squamous Epith Cells Moderate per lpf (None-Few) H 04/24/16 16:32 Urine Bacteria Many per hpf (None-Few) H 04/24/16 16:32 Ur Culture Indicated? YES (NO) A 04/24/16 16:32 Enterobacteriac sp PCR DETECTED (Not Detect) A 04/25/16 17:15 E. coli (PCR) DETECTED (Not Detect) A 04/25/16 17:15 Consult Discharge Plan - Plan Referrals: Brown Guy MD [Primary Care Provider] - 05/08/16 2:30 pm
--- NOTE | 2016-04-26 14:55 | Internal Med Progress Note ---
Date of Encounter: 04/26/16 Time of Encounter: 09:00 - Assessment and plan (1) UTI (urinary tract infection) Current Visit: Yes Status: Acute Assessment and plan: Patient has a UTI. Urine culture shows Escherichia coli, sensitive to Rocephin. We will continue Rocephin. Symptoms improved after treatment. Will also ask for urology consult because patient has urination problems and recurrent UTI. Qualifiers: Urinary tract infection type: acute cystitis Hematuria presence: with hematuria Qualified Code(s): N30.01 - Acute cystitis with hematuria (2) Sepsis Current Visit: Yes Status: Acute Assessment and plan: Patient has elevated white count, tachycardia, elevated lactate acid level, consider sepsis. Etiology is probably due to UTI. - Patient was given IV fluid resuscitation. Lactate acid level get down. -Continue antibiotic treatment. -Blood culture positive for gram-negative wilmer, waiting for final result, repeated blood culture tomorrow. Qualifiers: Sepsis type: sepsis due to unspecified organism Qualified Code(s): A41.9 - Sepsis, unspecified organism (3) Encephalopathy acute Current Visit: Yes Status: Acute Assessment and plan: Possibly metabolic encephalopathy caused by sepsis. Neurology consult appreciated. Less likely seizure. Improvement after treatment. We will continue antibiotics and IV fluid to treat sepsis. . (4) Elevated troponin Current Visit: Yes Status: Acute Assessment and plan: Considered demand ischemia. Patient has no chest pain. Cardiology consult appreciated. Echo done, results is unremarkable, LVEF 55%. (5) Seizure-like activity Current Visit: Yes Status: Acute Assessment and plan: Etiology is undetermined. Normal EEG. Neurology consult on case and the recommendation will be followed. (6) History of deep vein thrombosis (DVT) of lower extremity Current Visit: Yes Status: Chronic Assessment and plan: Patient is on eliquis (half dose per PCP) (7) Multiple sclerosis Current Visit: Yes Status: Chronic Assessment and plan: History of MS. Will continue treatment as outpatient after discharge. (8) Obesity (BMI 30-39.9) Current Visit: Yes Status: Chronic Assessment and plan: Need lifestyle modification (9) DVT prophylaxis Current Visit: Yes Status: Acute Assessment and plan: Patient is on eliquis. (10) Hypokalemia Current Visit: Yes Status: Acute Assessment and plan: Improvement after potassium supplement. Follow-up potassium level. - Time Spent With Patient 25 - 35 minutes - Subjective Interval history: Patient is a 61-year-old female admitted for altered mental status and sepsis, UTI. Her past medical history is significant for MS, UTI, DVT and PE. Patient was seen and examined. Patient states she feels better. She is awake alert, oriented 3, slow speech due to MS. She has no fever, vital signs stable. No nausea, no vomiting. WBC trended down. Will continue antibiotic treatment for sepsis and UTI. Patient has a recurrent UTI with urinary incontinence and retention sometimes. We will ask for urology consult. Continue Closely monitoring. - Constitutional Vitals: Temp Pulse Resp BP Pulse Ox 97.5 F L 97 18 134/86 97 04/26/16 11:53 04/26/16 11:53 04/26/16 11:53 04/26/16 11:53 04/26/16 12:48 General appearance: Present: A&O X 3, obese, answers questions appropriately. Absent: cooperative, A&O X 2 - Head Head exam: Present: atraumatic, normocephalic - Eye Eye exam: Present: PERRL, conjuntiva pink, sclera anicteric Pupils: Present: PERRL - Neck Neck exam general surgery: Present: supple, trachea midline. Absent: lymphadenopathy - Respiratory Respiratory exam: Present: CTAB. Absent: accessory muscle use, rales, rhonchi, wheezes - Cardiovascular Cardiovascular exam: Present: RRR, +S1, +S2. Absent: diastolic murmur, gallop, rubs, systolic murmur - GI/Abdominal GI/Abdominal exam: Present: normal bowel sounds, soft, no peritoneal signs. Absent: distended, tenderness - Extremities Exam Extremities exam: Present: warm, radial pulses palpable and symetrical. Absent : calf tenderness, cyanotic, pedal edema - Neurological Exam Neurological exam: Present: CN II-XII intact, oriented X3, no focal deficits. Absent: pronater drift, facial droop, speech deficit - Skin Skin exam: Present: dry, intact Internal Medicine: Result - Labs CBC & Chem 7: 04/26/16 05:01 04/26/16 05:01 Labs: Short CBC 04/26/16 Range/Units 05:01 WBC 35.9 H* (4.3-11.1) K/mcL Hgb 10.5 L D (11.5-15.4) g/dL Hct 32.6 L (35.3-44.9) % Plt Count 203 (140-400) K/mcL Neutrophils # 30.2 H (1.6-8.9) K/mcL BMP 04/26/16 05:01 Sodium 140 Potassium 4.0 D Chloride 116 H Carbon Dioxide 19 BUN 16 Creatinine 0.57 Glucose 73 Calcium 7.9 L - ABG Interpretation ABG results: ABG ABG pH 7.39 pH Units (7.32-7.45) 04/24/16 15:46 ABG pCO2 36 mmHg (35-45) 04/24/16 15:46 ABG pO2 72 mmHg (85-104) L 04/24/16 15:46 ABG O2 Saturation 94 % (95-98) L 04/24/16 15:46 PT/INR, D-dimer PT 13.2 Seconds (9.4-12.1) H 04/24/16 15:39 - VTE Documentation of Mechanical Device: Intermittent pneumatic compression device Consult Discharge Plan - Plan Referrals: Brown Guy MD [Primary Care Provider] - 05/08/16 2:30 pm
--- NOTE | 2016-04-26 15:58 | Urology - Consult Note ---
Date of Encounter: 04/26/16 Time of Encounter: 15:52 - Assessment and Plan (1) Sepsis secondary to UTI Current Visit: Yes Status: Acute Assessment and plan: Reviewing the patient's records she has had multiple culture positive UTIs. She reports minimal symptoms with these infections indicating colonization. She has some voiding dysfunction that is likely related to her multiple sclerosis. This could be contributing to her persistent UTI. She will require outpatient evaluation for her voiding dysfunction and attempts to minimize the impact from her UTIs. I reviewed her records and the renal ultrasound was negative but because of the severity of her recent presentation and her significant leukocytosis I feel a CT scan is necessary to rule out a etiology for the sepsis. We will order the study and follow the patient Urology CN:HPI Consult date: 04/26/16 History of present illness: new pt consult. pt with 30 year hx of MS. increasing issues with frequency and incontinence. hospitalized in 02/2016 with UTi. current admission for urosepsis. states no LUTS consistent with a UTI. "no warning" just became very ill. renal ultrasound normal. states feeling better. Past Med Surg Social Fam HX - Past Medical History Medical history: other Psychiatric history: no psych history - Past Surgical History Surgical History: cholecystectomy, other - Social History Smoking Status: Never smoker Smokeless Tobacco Status: No Alcohol use: none Drug use: none Medications and Allergies Apixaban [Eliquis] 5 mg PO DAILY 03/02/16 [History] Modafinil [Provigil] 100 mg PO DAILY PRN 04/24/16 [History] Allergies No Known Allergies Allergy (Verified 03/02/16 17:25) Review of Systems - Constitutional chills, fatigue, malaise, weakness - EENT Nose, mouth and throat: dizziness - Cardiovascular no chest pain - Respiratory no cough - Gastrointestinal no abdominal pain - Genitourinary Genitourinary: urinary frequency, urinary incontinence - Musculoskeletal back pain - Integumentary no erythema - Neurological no confusion - Psychiatric no anxiety - Hematologic/Lymphatic no easy bleeding - Allergic/Immunologic no throat swelling Exam Initial Vital Signs Temp Pulse Resp BP Pulse Ox 98.4 F 134 24 146/93 96 04/24/16 15:35 04/24/16 15:35 04/24/16 15:35 04/24/16 15:35 04/24/16 15:35 - General physical appearance Present: well developed, no distress - Eyes Present: PERRL - ENT Present: normal nares - Neck Present: no masses - Respiratory Present: normal respiratory effort - Cardiovascular Cardiovascular exam IM: RRR - Abdomen Abdomen: Present: soft - Integumentary Present: no rash - Neurologic Absent: disoriented, confused - Additional Findings Ataxia Sigala catheter draining clear urine Urology Results - Labs 04/26/16 05:01 04/26/16 05:01 Abnormal lab results WBC 35.9 K/mcL (4.3-11.1) H* 04/26/16 05:01 RBC 3.68 M/mcL (3.82-4.97) L 04/26/16 05:01 Hgb 10.5 g/dL (11.5-15.4) L D 04/26/16 05:01 Hct 32.6 % (35.3-44.9) L 04/26/16 05:01 Band Neutrophils % 10.0 % (0-4) H 04/26/16 05:01 Neutrophils # 30.2 K/mcL (1.6-8.9) H 04/26/16 05:01 Monocytes # 1.4 K/mcL (0.0-1.3) H 04/26/16 05:01 Eosinophils # 0.7 K/mcL (0.0-0.6) H 04/26/16 05:01 ESR 98 mm/hr (0-15) H 04/24/16 20:36 PT 13.2 Seconds (9.4-12.1) H 04/24/16 15:39 ABG pO2 72 mmHg (85-104) L 04/24/16 15:46 ABG O2 Saturation 94 % (95-98) L 04/24/16 15:46 ABG Base Excess -2.6 mEq/L (-2.0 to 3.0) L 04/24/16 15:46 Chloride 116 mEq/L (98-109) H 04/26/16 05:01 BUN/Creatinine Ratio 28 (6-26) H 04/26/16 05:01 Calcium 7.9 mg/dL (8.6-10.8) L 04/26/16 05:01 Ionized Calcium 1.08 mmol/L (1.15-1.35) L 04/25/16 03:50 Phosphorus 2.2 mg/dL (2.3-4.7) L 04/26/16 05:01 Alkaline Phosphatase 164 Units/L (38-126) H 04/24/16 15:39 Creatine Kinase 17 Units/L (29-168) L 04/24/16 15:39 Troponin I 0.04 ng/mL (0-0.03) H* 04/25/16 10:03 C-Reactive Protein 40 mg/L (Less than 5) H 04/24/16 20:36 Albumin 3.4 g/dL (3.5-5.0) L 04/24/16 15:39 Globulin 4.6 g/dL (2.4-3.5) H 04/24/16 15:39 Albumin/Globulin Ratio 0.7 (1.1-2.2) L 04/24/16 15:39 Urine Clarity Turbid (Clear) A 04/24/16 16:32 Urine Protein 30 mg/dL (Neg-Trace) H 04/24/16 16:32 Urine Blood Large (Negative) H 04/24/16 16:32 Ur Leukocyte Esterase Large (Negative) H 04/24/16 16:32 Urine Microscopic RBC TNTC per hpf (0-3) H 04/24/16 16:32 Urine Microscopic WBC TNTC per hpf (0-3) H 04/24/16 16:32 Ur Squamous Epith Cells Moderate per lpf (None-Few) H 04/24/16 16:32 Urine Bacteria Many per hpf (None-Few) H 04/24/16 16:32 Ur Culture Indicated? YES (NO) A 04/24/16 16:32 Enterobacteriac sp PCR DETECTED (Not Detect) A 04/25/16 17:15 E. coli (PCR) DETECTED (Not Detect) A 04/25/16 17:15 Diabetes panel 04/26/16 Range/Units 05:01 Sodium 140 (136-145) mEq/L Potassium 4.0 D (3.5-4.5) mEq/L Chloride 116 H (98-109) mEq/L Carbon Dioxide 19 (19-29) mEq/L BUN 16 (7-20) mg/dL Creatinine 0.57 (0.57-1.11) mg/dL Glucose 73 (70-99) mg/dL Calcium 7.9 L (8.6-10.8) mg/dL Calcium panel 04/26/16 04/26/16 Range/Units 05:01 05:01 Calcium 7.9 L (8.6-10.8) mg/dL Phosphorus 2.2 L (2.3-4.7) mg/dL Pituitary panel 04/26/16 Range/Units 05:01 Sodium 140 (136-145) mEq/L Potassium 4.0 D (3.5-4.5) mEq/L Chloride 116 H (98-109) mEq/L Carbon Dioxide 19 (19-29) mEq/L BUN 16 (7-20) mg/dL Creatinine 0.57 (0.57-1.11) mg/dL Glucose 73 (70-99) mg/dL Calcium 7.9 L (8.6-10.8) mg/dL Adrenal panel 04/26/16 Range/Units 05:01 Sodium 140 (136-145) mEq/L Potassium 4.0 D (3.5-4.5) mEq/L Chloride 116 H (98-109) mEq/L Carbon Dioxide 19 (19-29) mEq/L BUN 16 (7-20) mg/dL Creatinine 0.57 (0.57-1.11) mg/dL Glucose 73 (70-99) mg/dL Calcium 7.9 L (8.6-10.8) mg/dL All other labs normal. Consult Discharge Plan - Plan Referrals: Brown Guy MD [Primary Care Provider] - 05/08/16 2:30 pm
--- NOTE | 2016-04-26 18:29 | Carotid Imaging Report ---
Carotid Duplex Patient Name:Anabela Vega Order Number:[id number] Procedure Date:04/25/2016 Date:1955ge:61 yrs Gender:Female Location:[facility] Room #: 3A52 Bull Chain Operator:Christopher Zafar RN Referring MD:Wander Iyer MD flight communications officer:Brown Guy MD Reading MD:Uzair Mendoza MD Primary Indications:Altered Mental Status Risk Factors Yes/No Hypertension No Diabetes No Hypercholesterolemia No Smoker Previous No Hx of TIA No Hx of CVA No Anticoagulants Yes Previous Vascular Surgery No Impressions: The bilateral carotid arteries have minimal plaque throughout. Recommendations: Test completed on 04/25/2016 at 8:25:00 am. Findings Carotid Duplex: Right: The right proximal common carotid artery has a PSV of 90 cm/s and a EDV of 16 cm/s. The right mid common carotid artery has a PSV of 84 cm/s and a EDV of 19 cm/s. The right distal common carotid artery has a PSV of 75 cm/s and a EDV of 14 cm/s. There is nonstenotic plaque in the right bifurcation with a PSV of 91 cm/s and a EDV of 23 cm/s. There is smooth homogeneous plaque. There is nonstenotic plaque in the right proximal internal carotid artery with a PSV of 67 cm/s and a EDV of 20 cm/s. There is smooth homogeneous plaque. The right mid internal carotid artery has a PSV of 63 cm/s and a EDV of 24 cm/s. The right distal internal carotid artery has a PSV of 80 cm/s and a EDV of 28 cm/s. The right eca has a PSV of 135 cm/s and a EDV of 10 cm/s. The right vertebral artery has a PSV of 32 cm/s and a EDV of 10 cm/s. Left: The left proximal common carotid artery has a PSV of 118 cm/s and a EDV of 20 cm/s. The left mid common carotid artery has a PSV of 75 cm/s and a EDV of 17 cm/s. The left distal common carotid artery has a PSV of 68 cm/s and a EDV of 17 cm/s. There is nonstenotic plaque in the left bifurcation with a PSV of 91 cm/s and a EDV of 21 cm/s. There is smooth homogeneous plaque. There is nonstenotic plaque in the left proximal internal carotid artery with a PSV of 65 cm/s and a EDV of 18 cm/s. There is smooth homogeneous plaque. The left mid internal carotid artery has a PSV of 65 cm/s and a EDV of 28 cm/s. The left distal internal carotid artery has a PSV of 70 cm/s and a EDV of 23 cm/s. The left eca has a PSV of 113 cm/s and a EDV of 13 cm/s. The left vertebral artery has a PSV of 42 cm/s and a EDV of 12 cm/s. Prior Study: No prior study available for comparison. Carotid Results Right PSV EDV Assessment Proximal CCA 90 16 Normal Mid CCA 84 19 Normal Distal CCA 75 14 Normal Bifurcation 91 23 Non Stenotic Plaque Proximal ICA 67 20 Non Stenotic Plaque Mid ICA 63 24 Normal Distal ICA 80 28 Normal ECA 135 10 Normal Vertebral Artery 32 10 Normal Left PSV EDV Assessment Proximal CCA 118 20 Normal Mid CCA 75 17 Normal Distal CCA 68 17 Normal Bifurcation 91 21 Non Stenotic Plaque Proximal ICA 65 18 Non Stenotic Plaque Mid ICA 65 28 Normal Distal ICA 70 23 Normal ECA 113 13 Normal Vertebral Artery 42 12 Normal Ratio's Right ICA/CCA Ratio: 0.95 ICA/CCA Values: 80/84 Left ICA/CCA Ratio: 0.93 ICA/CCA Values: 70/75 Updated by Uzair Mendoza MD on 04/26/2016 6:25:26 PM electronically signed on 04/26/2016 6:25:36 PM with status of Final
[2016-04-27] MEDS: 0.9 % Sodium Chloride 1,000 ML IVC SCH (00:12)
[2016-04-27 05:15] LABS: Basophils # 0.1 K/mcL (0.0-0.2); Basophils % 0.3 %; Eosinophils # 0.2 K/mcL (0.0-0.6); Eosinophils % 1.2 %; Hematocrit 34.4 % (35.3-44.9); Hemoglobin 11.1 g/dL (11.5-15.4); Immature Granulocytes % 0.5 % (0-4); Lymphocytes # 1.4 K/mcL (0.6-4.6); Lymphocytes % 7.7 %; Mean Corpuscular HGB Conc 32.3 g/dL (31.6-35.5); Mean Corpuscular Volume 86.9 fL (83.0-100.0); Monocytes # 0.9 K/mcL (0.0-1.3); Monocytes % 4.7 %; Neutrophils # 15.9 K/mcL (1.6-8.9); Platelet Count 218 K/mcL (140-400); Red Blood Count 3.96 M/mcL (3.82-4.97); Red Cell Distribution Width 13.7 % (11.5-14.5); Segmented Neutrophils % 85.6 %
[2016-04-27 05:29] LABS: BUN/Creatinine Ratio 15 (6-26); Blood Urea Nitrogen 8 mg/dL (7-20); Calcium 8.6 mg/dL (8.6-10.8); Carbon Dioxide 20 mEq/L (19-29); Chloride 110 mEq/L (98-109); Glucose 79 mg/dL (70-99); Osmolality,Calculated 281 (280-300); Potassium 4.3 mEq/L (3.5-4.5); Sodium 137 mEq/L (136-145); eGFR For African Americans > 60 (> 60); eGFR For Non-African Americans > 60 (> 60)
[2016-04-27] MEDS: Folic Acid 1 MG TABLET PO SCH (09:50)
[2016-04-27] MEDS: APIXABAN 5 MG TABLET PO SCH (09:50)
[2016-04-27] MEDS: Vitamin B Complex/Vit C/Vit E 1 EACH TABLET PO SCH (09:50)
[2016-04-27] MEDS: Pantoprazole 40 MG VIAL IVP SCH (09:50)
[2016-04-27] MEDS: Thiamine (B-1) 100 MG TABLET PO SCH (09:50)
--- NOTE | 2016-04-27 11:25 | Vascular/Endovasc Consult Note ---
Date of Encounter: 04/27/16 Time of Encounter: 17:00 Assessment and Plan (1) Iliac artery aneurysm, right Current Visit: Yes Status: Chronic The pathophysiology and natural history of abdominal and pelvic aneurysms was discussed with the patient and all questions were answered. Her CT was reviewed and right common iliac artery aneurysm noted. Bilateral hypogastric artery aneurysms noted as well. There is no evidence of rupture. 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 There is no indication for acute intervention. The aneurysm appears to be acceptable for repair by an endovascular approach. The patient states that her Neurologist is at [facility]. Due to her progressive multiple sclerosis, she would like to have further evaluation at [facility]. She reports that she will be transferred there soon. She was instructed to seek immediate medical attention for any signs or symptoms of rupture. (2) Essential hypertension Current Visit: Yes Status: Chronic The patient was counseled regarding atheorsclerotic risk factor reduction. - History of Present Illness Consult date: 04/27/16 Requesting physician: Cb Aragon Consult reason: Iliac artery aneurysm Chief complaint: Abdominal pain History of present illness: Ms. Vega is a 61 year old female with a 30 year history of multiple sclerosis who has progressive symptoms with significant Neurologic deficits. She is nonambulatory. She presented to [facility] with signs and symptoms of urosepsis. She was evaluated by Nephrology and a CT scan was ordered. The CT revealed a right common iliac artery aneurysm and bilateral hypogastric artery aneurysms. Vascular surgery was consulted for further evaluation. The patient was unaware of the aneursym, but reports a significant family history of aneurysms including in her sister and mother. She denies any new onset abdominal, flank or back pain. She denies chest pain or shortness of breath. Past Med Surg Social Fam HX - Past Medical History Medical history: other Psychiatric history: no psych history - Past Surgical History Surgical History: cholecystectomy, other - Social History Smoking Status: Never smoker Smokeless Tobacco Status: No Alcohol use: none Drug use: none Medications and Allergies Apixaban [Eliquis] 5 mg PO DAILY 03/02/16 [History] Modafinil [Provigil] 100 mg PO DAILY PRN 04/24/16 [History] Acetaminophen [Tylenol] 650 mg PO Q6HR PRN #0 tablet 04/27/16 [Rx] CefTRIAXone [Rocephin] 2,000 mg IVPB DAILY #2 vial 04/27/16 [Rx] Ipratropium/Albuterol Neb [Duoneb] 3 ml IH [id number] PRN #0 inhsol 04/27/16 [Rx] Allergies No Known Allergies Allergy (Verified 03/02/16 17:25) All Systems Review: A 10-system review of systems was performed and is negative for pertinent findings except as documented above in the HPI. - Cardiovascular Cardiovascular: as per HPI Exam Vital Signs, Last 4 Hours Temp Pulse Resp BP Pulse Ox 04/27/16 10:53 97.7 F 92 16 170/95 94 L 04/27/16 09:55 96 General: Present: Conversant, No Apparent Distress HEENT: Present: Trachea midline, Pupils equal Neck: Absent: JVD, Left Carotid bruit, Right Carotid bruit Cardiac: Present: Reg Rate and Rhythm, Normal S1 and S2 Lungs: Present: Normal Breath Sounds, No Wheeze, Rales, Rhonchi Neuro: Present: Alert and responsive, Other (scattered diminished motor and sensory function due to multiple sclerosis.) Abdomen: Present: Soft, Non-tender, Other (abdominal aorta not palpable). Absent: Masses Vascular: Present: Normal capillary refill. Absent: Clubbing, Cyanosis, Edema Skin: Present: No rashes noted on visualized skin Consult Discharge Plan - Plan Referrals: Brown Guy MD [Primary Care Provider] - 05/08/16 2:30 pm Prescriptions: CefTRIAXone [Rocephin] 2,000 mg IVPB DAILY #2 vial
--- NOTE | 2016-04-27 12:53 | Urology Progress Note ---
Date of Encounter: 04/27/16 Time of Encounter: 17:20 - Assessment and Plan (1) Sepsis secondary to UTI Current Visit: Yes Status: Acute (2) Hydronephrosis with renal and ureteral calculous obstruction Current Visit: Yes Status: Acute Assessment and plan: patient likely became uroseptic secondary to the obstructing renal/UPJ stones. pt will need ureteral stent placement and a staged stone extraction as an outpatient. At the of this note, patient had requested transfer to [facility] which is scheduled to occur tonight. stent placement here at [facility] canceled and will defer management/procedure to [facility] Progress Note Subjective: feels better Narrative: pt states she is feeling better. Objective Initial Vital Signs Temp Pulse Resp BP Pulse Ox 98.4 F 134 24 146/93 96 04/24/16 15:35 04/24/16 15:35 04/24/16 15:35 04/24/16 15:35 04/24/16 15:35 - General physical appearance Present: well developed, no distress - Abdomen Present: soft - Labs 04/27/16 04:51 04/27/16 04:51 - VTE Documentation of Mechanical Device: Intermittent pneumatic compression device Consult Discharge Plan - Plan Referrals: Brown Guy MD [Primary Care Provider] - 05/08/16 2:30 pm Prescriptions: CefTRIAXone [Rocephin] 2,000 mg IVPB DAILY #2 vial
[2016-04-27 14:52] VITALS: BP 158/92
--- NOTE | 2016-04-27 15:35 | Discharge Summary ---
Date of Encounter: 04/27/16 Time of Encounter: 13:00 - Discharge Diagnosis (1) UTI (urinary tract infection) Priority: Primary Status: Acute Qualifiers: Urinary tract infection type: acute cystitis Hematuria presence: with hematuria Qualified Code(s): N30.01 - Acute cystitis with hematuria (2) Sepsis Priority: Primary Status: Acute Qualifiers: Sepsis type: sepsis due to unspecified organism Qualified Code(s): A41.9 - Sepsis, unspecified organism (3) Encephalopathy acute Priority: Primary Status: Acute (4) Elevated troponin Priority: Primary Status: Acute (5) Seizure-like activity Priority: Primary Status: Acute (6) History of deep vein thrombosis (DVT) of lower extremity Priority: Secondary Status: Chronic (7) Multiple sclerosis Priority: Secondary Status: Chronic (8) Obesity (BMI 30-39.9) Priority: Secondary Status: Chronic (9) DVT prophylaxis Priority: Secondary Status: Acute (10) Hypokalemia Priority: Secondary Status: Acute (11) Hydronephrosis with renal and ureteral calculous obstruction Priority: Primary Status: Acute (12) Iliac artery aneurysm, right Priority: Primary Status: Chronic - Discharge Medications Prescriptions: CefTRIAXone [Rocephin] 2,000 mg IVPB DAILY #2 vial Home Medications: Apixaban [Eliquis] 5 mg PO DAILY 03/02/16 [History] Modafinil [Provigil] 100 mg PO DAILY PRN 04/24/16 [History] Acetaminophen [Tylenol] 650 mg PO Q6HR PRN #0 tablet 04/27/16 [Rx] CefTRIAXone [Rocephin] 2,000 mg IVPB DAILY #2 vial 04/27/16 [Rx] Ipratropium/Albuterol Neb [Duoneb] 3 ml IH [id number] PRN #0 inhsol 04/27/16 [Rx] Allergies/Adverse Reactions: Allergies No Known Allergies Allergy (Verified 03/02/16 17:25) Date of admission: 04/27/16 10:25 Primary care physician: Brown Guy MD Consults: 04/27/16 10:40 Consult to Vascular Surgery [CONS] Routine Consulting Provider: Vascular Surgery [place] Reason for Consult: Aneurysm in iliac A with thrombus and age undetermined dissection flap Call Completed: Yes 04/27/16 11:54 Consult to Speech Therapy [CONS] Routine Comment: Evaluate, develop and implement POC Reason for Consult: Patient reports having a increased problem with chewing from hx of MS, suggested by home security alarm installer, Dr. Aragon approved consult. Call Completed: No Discharging clinician: Cb Aragon Anticipated date of discharge: 04/27/16 - Patient Status Disposition: Transfer Short-Term Hosp Condition: Fair Functional capacity at discharge: bed bound Overall status at discharge: patient is not back to baseline - Discharge Instructions Follow Up With: Brown Guy MD [Primary Care Provider] - 05/08/16 2:30 pm - Diet and Activity Diet: regular diet Interval History: Patient presents to emergency room with a report of altered mental status. I spoke with family members who were present with the patient when she started getting sick. They were driving in a car when the patient started saying that she was feeling sick. They ended up taking her home and she started getting sick with vomiting. When she arrives here she has vomitus on her shirt and as were moving her over to the gurney she has a large diarrheal bowel movement. As we evaluate the patient we see that she has clenched teeth and her speech is abnormal because she speaking through these clenched teeth, however everything she says is appropriate. Furthermore she answers all questions appropriately, she even calls out her name when the nurse on the other side of the room asked another nurse what the patient's name was. So we are not seeing a receptive aphasia and we are not seeing an expressive aphasia. Patient is lying in the bed with both of her arms clenched up. They are drawn up so hard it was difficult for the tach to get the patient's shirt off and get the gown on. So here we are not seeing weakness of the upper extremities at all. Furthermore I do not think this represents seizure activity because both arms are clenched yet the patient is conscious. We found no lateralizing signs on the extremity examination as the patient moved both arms. She was not really able to move either leg but family and friends at the bedside are telling me that this is normal because the patient has multiple sclerosis and is essentially bedridden and transfers to a wheelchair for movement. This picture is not indicative of an acute CVA, therefore I did not call a stroke alert. According to family she is done something similar to this a couple of times in the past and it has always been related to an infection, particularly urinary tract infection. I initiated a septic workup and we will get a head CT as well. I am wondering if there is not some carpopedal spasm going on here as result of some hyperventilation so we did give the patient a milligram of Ativan as well to calm her down and we are waiting to see the effect of that treatment. At this time the patient is hemodynamically stable and again shows no signs of acute CVA Hospital course: Ms. Vega is a 61 year old female admitted as altered mental status. Patient has a history of MS. at the beginning, seizure was suspected. Neurology consult saw patient and did the EEG, which results normal. Patient was found high WBC to 58k, UTI. She was treated as a urosepsis with Rocephin. Urine culture and blood culture shows Escherichia coli, sensitive to Rocephin. After treatment of her WBC get down to 18k today. Urology consult was called and recommended for abdominal CAT scan. Abdominal CT shows left renal pelvis stone with hydronephrosis. Incidentally, CAT scan shows right common iliac artery aneurysm with thrombosis and age undetermined dissection. Vascular surgeon consult was called and considered no intermediate procedure needed to be done. Urologist recommended to put stent to relieve hydronephrosis. Patient had MS and does see doctor in [facility]. Patient wants to be transferred to [facility] for further procedure and the treatment. Patient told me she does not want any procedure to be done in our hospital. [facility] was called and accepted the patient. Accepting doctor is Dr. Vargas. I saw and examined the patient today. She is awake, alert, oriented 3. No fever, vitals are stable. No nausea no vomiting. No shortness of breath or chest pain. WBC get down. Patient is vitally stable for transferring to [facility] for further management. - Time Spent with Patient Total time spent providing and/or coordinating discharge services: Greater than 30 minutes - Constitutional Vitals: Temp Pulse Resp BP Pulse Ox 97.8 F 101 18 158/92 91 L 04/27/16 14:39 04/27/16 14:39 04/27/16 14:39 04/27/16 14:39 04/27/16 14:39 General appearance: Present: A&O X 3, obese, answers questions appropriately. Absent: cooperative, A&O X 2 - Head Head exam: Present: atraumatic, normocephalic - Eye Eye exam: Present: PERRL, conjuntiva pink, sclera anicteric Pupils: Present: PERRL - Neck Neck exam general surgery: Present: supple, trachea midline. Absent: lymphadenopathy - Respiratory Respiratory exam: Present: CTAB. Absent: accessory muscle use, rales, rhonchi, wheezes - Cardiovascular Cardiovascular exam: Present: RRR, +S1, +S2. Absent: diastolic murmur, gallop, rubs, systolic murmur - GI/Abdominal GI/Abdominal exam: Present: normal bowel sounds, soft, no peritoneal signs. Absent: distended, tenderness - Extremities Exam Extremities exam: Present: warm, radial pulses palpable and symetrical. Absent : calf tenderness, cyanotic, pedal edema - Neurological Exam Neurological exam: Present: CN II-XII intact, oriented X3, no focal deficits. Absent: pronater drift, facial droop, speech deficit - Skin Skin exam: Present: dry, intact - VTE Documentation of Mechanical Device: Intermittent pneumatic compression device
--- NOTE | 2016-04-27 16:16 | Physician Discharge Referral ---
ExtendedCare Referral Info Transfer To: [facility] Provider in Charge after Transfer: Other - Diagnosis (1) UTI (urinary tract infection) Priority: Primary Status: Acute (2) Sepsis Priority: Primary Status: Acute (3) Encephalopathy acute Priority: Primary Status: Acute (4) Elevated troponin Priority: Primary Status: Acute (5) Seizure-like activity Priority: Primary Status: Acute (6) History of deep vein thrombosis (DVT) of lower extremity Priority: Secondary Status: Chronic (7) Multiple sclerosis Priority: Secondary Status: Chronic (8) Obesity (BMI 30-39.9) Priority: Secondary Status: Chronic (9) DVT prophylaxis Priority: Secondary Status: Acute (10) Hypokalemia Priority: Secondary Status: Acute (11) Hydronephrosis with renal and ureteral calculous obstruction Priority: Primary Status: Acute (12) Iliac artery aneurysm, right Priority: Primary Status: Chronic - Transfer Medications Prescriptions: CefTRIAXone [Rocephin] 2,000 mg IVPB DAILY #2 vial Home Medications: Apixaban [Eliquis] 5 mg PO DAILY 03/02/16 [History] Modafinil [Provigil] 100 mg PO DAILY PRN 04/24/16 [History] Acetaminophen [Tylenol] 650 mg PO Q6HR PRN #0 tablet 04/27/16 [Rx] CefTRIAXone [Rocephin] 2,000 mg IVPB DAILY #2 vial 04/27/16 [Rx] Ipratropium/Albuterol Neb [Duoneb] 3 ml IH [id number] PRN #0 inhsol 04/27/16 [Rx] Allergies/Adverse Reactions: Allergies No Known Allergies Allergy (Verified 03/02/16 17:25) - Respiratory Orders Smoking Cessation: Smoking cessation has been advised. For more information, call the [place] Tobacco Quit Line at 0-693-LYYJ-NOW. - Advance Directives Code Status: Full Code - Mobility Orders Bedrest - Diet Orders Regular CERTIFICATION: I certify that the transfer of the above named patient to an Extended Care Facility is necessary for the continuing treatment of the diagnosis listed. The above information is true and accurate reflection of patient's current condition. Confidential - Redisclosure prohibited without a patient's written consent.
[2016-05-01 14:17] LABS: Alpha 2 Globulin (PEP) 0.8 g/dL (0.5-1.1)
== END 2016-04-27 19:05 | disposition short-term general hospital (02) | DRG 871 ==
LOC: EMEROO 15:33 → 3ANU 15:33
PROVIDERS: ADMIT Internal Medicine; ATTEND Internal Medicine

== ENCOUNTER 2020-12-20 00:43 | Inpatient (IN) ==
[2020-12-20] MEDS ORDERED: Acetaminophen 325 MG TABLET PO PRN (07:33)
[2020-12-20] MEDS ORDERED: Naloxone 0.4 MG/ML INJ IVP PRN (07:33)
[2020-12-20] MEDS: *HR* Heparin 5,000 UNIT/ML VIAL SQ SCH ×2 (08:21→16:59)
[2020-12-20] MEDS: cefTRIAXone 2,000 MG in Water for inj. (sterile) 10 ML IVP SCH (08:22)
[2020-12-20] MEDS: Norepinephrine 4 MG/254 ML IV.SOLN IVC SCH (08:22)
[2020-12-20] MEDS: Ringers Solution, Lactated 1,000 ML IVC SCH ×2 (08:23→19:35)
[2020-12-20 08:35] LABS: Bacteria,Urine Few per hpf (None-Few); Bilirubin,Urine Negative (Negative); Blood,Urine Large (Negative); Clarity,Urine Ex.Turbid (Clear); Color,Urine Yellow (Yellow); Glucose,Urine (UA) Normal (Normal); Ketones,Urine Negative (Negative); Leukocyte Esterase,Urine Large (Negative); Mucus,Urine Few per lpf (None-Few); Nitrite,Urine Negative (Negative); Protein,Urine 30 mg/dL (Neg-Trace); RBC,Urine 15-30 per hpf (0-3); Specific Gravity,Urine 1.009 (1.010-1.025); Squamous Epithelial Cell,Urine Moderate per hpf (None-Few); Urobilinogen,Urine Normal (Normal); WBC,Urine TNTC per hpf (0-3)
[2020-12-20 08:47] LABS: Albumin 2.9 g/dL (3.5-5.7); Bilirubin,Direct 0.2 mg/dL (0.0-0.2); Bilirubin,Indirect 0.3 mg/dL (0.0-1.0); Bilirubin,Total 0.5 mg/dL (0.3-1.0); Calcium 7.2 mg/dL (8.6-10.3); Globulin 2.9 g/dL (2.4-3.5); Magnesium 1.3 mg/dL (1.6-2.6); Phosphorous 1.7 mg/dL (2.7-4.5); Potassium 3.1 mEq/L (3.5-5.1); Total Protein 5.8 g/dL (6.4-8.9)
[2020-12-20] MEDS ORDERED: Calcium Gluconate 1gm/50mL 1 GM/50 ML BAG IVPB PRN (10:44)
[2020-12-20] MEDS ORDERED: Potassium Phosphate 44 MEQ in 0.9 % Sodium Chloride 250 ML IVPB PRN (10:44)
[2020-12-20] MEDS: Potassium Chloride 40 MEQ/200 ML BAG IVPB PRN ×2 (11:35→12:57)
[2020-12-20 12:02] LABS: VBG Ionized Calcium 1.05 mmol/L (1.15-1.35)
[2020-12-20 12:04] LABS: Hemoglobin 9.4 g/dL (11.5-15.4)
[2020-12-20 12:05] LABS: Hematocrit 30.3 % (35.3-44.9); Mean Corpuscular Hemoglobin 27.2 pg (28.0-33.3); Mean Corpuscular Volume 87.6 fL (83.0-100.0); Mean Platelet Volume 10.1 fL (9.4-12.4); Platelet Count 173 K/mcL (140-400); Red Blood Count 3.46 M/mcL (3.82-4.97); Red Cell Distribution Width 16.2 % (11.5-14.5)
[2020-12-20 12:13] LABS: White Blood Count 62.2 K/mcL (4.3-11.1)
[2020-12-20 13:30] LABS: Lymphocytes # 1.2 K/mcL (0.6-4.6); Monocytes # 2.5 K/mcL (0.0-1.3); Neutrophils # 52.9 K/mcL (1.6-8.9)
[2020-12-20 13:31] LABS: Platelet Estimate Normal (Normal); Toxic Granulation Present (Not Present)
[2020-12-20] MEDS ORDERED: *HR* Vasopressin 20 UNIT/ML VIAL ONE (13:32)
[2020-12-20] MEDS ORDERED: Lidocaine HCL 4 ML Topical Solution (Laryng-O-Jet Kit Sterile Pak) TP ONE (13:36)
[2020-12-20] MEDS ORDERED: Lidocaine -MPF 2% 2 ML VIAL ONE (13:37)
[2020-12-20] MEDS ORDERED: *HR* Propofol 200 MG/20 ML VIAL IVP ONE (13:37)
[2020-12-20] MEDS ORDERED: Lidocaine 1% 0 ML ONE (13:47)
[2020-12-20] MEDS ORDERED: Isovue-300 50ML VIAL ONE (13:50)
[2020-12-20 15:08] LABS: ABG Base Excess -11 mEq/L (-2 to 3); ABG Chloride 119 mEq/L (98-107); ABG Glucose 116 mg/dL (60-95); ABG HCO3 15 mEq/L (21-27); ABG Ionized Calcium 1.11 mmol/L (1.15-1.35); ABG Oxygen Saturation 100 % (95-98); ABG PCO2 32 mmHg (35-45); ABG PH 7.28 pH Units (7.32-7.45); ABG PO2 188 mmHg (85-104); ABG TCO2 16 mEq/L (20-26)
[2020-12-20] MEDS ORDERED: Albumin Human 5% 12.5 GM/250 ML IV.SOLN ONE ×2 (15:09→15:10)
[2020-12-20 16:32] LABS: Hemoglobin 8.1 g/dL (11.5-15.4)
[2020-12-20 16:51] LABS: BUN/Creatinine Ratio 28 (6-26); Blood Urea Nitrogen 31 mg/dL (8-23); Calcium 8.5 mg/dL (8.6-10.3); Carbon Dioxide 15 mEq/L (23-29); Chloride 119 mEq/L (98-107); Glucose 82 mg/dL (70-105); Magnesium 1.8 mg/dL (1.6-2.6); Osmolality,Calculated 302 (280-300); Sodium 143 mEq/L (136-145); eGFR For African Americans > 60 (> 60); eGFR For Non-African Americans 50 (> 60)
[2020-12-20] MEDS ORDERED: *HR* Dextrose 50 % in Water (Syg) 50 ML SYRINGE IVP ONE (22:35)
[2020-12-21] MEDS: *HR* Heparin 5,000 UNIT/ML VIAL SQ SCH ×4 (00:41→19:37)
[2020-12-21 03:56] LABS: Alanine Aminotransferase 32 Units/L (7-52); Albumin/Globulin Ratio 1.1 (1.1-2.2); Alkaline Phosphatase 104 Units/L (34-104); Aspartate Amino Transferase 42 Units/L (13-39); BUN/Creatinine Ratio 27 (6-26); Bilirubin,Direct 0.1 mg/dL (0.0-0.2); Bilirubin,Indirect 0.2 mg/dL (0.0-1.0); Bilirubin,Total 0.3 mg/dL (0.3-1.0); Blood Urea Nitrogen 29 mg/dL (8-23); Calcium 8.1 mg/dL (8.6-10.3); Carbon Dioxide 17 mEq/L (23-29); Chloride 119 mEq/L (98-107); Globulin 2.8 g/dL (2.4-3.5); Glucose 80 mg/dL (70-105); Magnesium 2.3 mg/dL (1.6-2.6); Osmolality,Calculated 305 (280-300); Phosphorous 4.3 mg/dL (2.7-4.5); Potassium 4.3 mEq/L (3.5-5.1); Sodium 145 mEq/L (136-145); Total Protein 5.8 g/dL (6.4-8.9); eGFR For African Americans > 60 (> 60); eGFR For Non-African Americans 52 (> 60)
[2020-12-21 04:05] LABS: Hematocrit 27.9 % (35.3-44.9); Hemoglobin 8.3 g/dL (11.5-15.4); Mean Corpuscular HGB Conc 29.7 g/dL (31.6-35.5); Mean Corpuscular Hemoglobin 25.7 pg (28.0-33.3); Mean Corpuscular Volume 86.4 fL (83.0-100.0); Mean Platelet Volume 10.7 fL (9.4-12.4); Platelet Count 131 K/mcL (140-400); Red Blood Count 3.23 M/mcL (3.82-4.97); Red Cell Distribution Width 16.6 % (11.5-14.5)
[2020-12-21 04:13] LABS: White Blood Count 60.2 K/mcL (4.3-11.1)
[2020-12-21] MEDS: Ringers Solution, Lactated 1,000 ML IVC SCH ×4 (04:23→19:37)
[2020-12-21 04:29] LABS: Monocytes # 2.4 K/mcL (0.0-1.3); Neutrophils # 56.6 K/mcL (1.6-8.9); Platelet Estimate Slight Decrease (Normal); Toxic Granulation Present (Not Present)
[2020-12-21] MEDS ORDERED: *HR* Dextrose 50 % in Water (Syg) 50 ML SYRINGE ONE (06:02)
[2020-12-21] MEDS: Norepinephrine 4 MG/254 ML IV.SOLN IVC SCH (06:05)
[2020-12-21] MEDS ORDERED: *HR* Dextrose 50 % in Water (Syg) 50 ML SYRINGE IVP ONE (06:07)
[2020-12-21] MEDS: lisinopriL 10 MG TABLET PO SCH ×2 (06:18→06:22)
[2020-12-21] MEDS: cefTRIAXone 2,000 MG in Water for inj. (sterile) 10 ML IVP SCH (07:57)
[2020-12-21] MEDS ORDERED: Acetaminophen 325 MG TABLET PO PRN (09:51)
[2020-12-21] MEDS ORDERED: Naloxone 0.4 MG/ML INJ IVP PRN (09:51)
[2020-12-21] MEDS: E-Z-PAQUE (BARIUM SULF) SUSP 1 BOTTLE PO ONE ×2 (12:41→15:18)
[2020-12-21] MEDS: E-Z-HD (BARIUM SULF) SUSPENSION PO ONE ×2 (12:41→15:17)
[2020-12-21] MEDS ORDERED: *HR* Labetalol 20 MG/4 ML SYRINGE IVP PRN (16:04)
[2020-12-21] MEDS ORDERED: *HR* Dextrose 50 % in Water (Vial) 50 ML VIAL ONE (20:12)
[2020-12-22 04:23] LABS: Hematocrit 28.4 % (35.3-44.9); Nucleated Red Blood Cells 0.1 /100 WBC (0); Red Blood Count 3.34 M/mcL (3.82-4.97)
[2020-12-22 04:25] LABS: Hemoglobin 8.9 g/dL (11.5-15.4); Immature Platelets 7.1 % (1.1-6.1); Mean Corpuscular HGB Conc 31.3 g/dL (31.6-35.5); Mean Corpuscular Hemoglobin 26.6 pg (28.0-33.3); Mean Platelet Volume 11.1 fL (9.4-12.4); Platelet Count 101 K/mcL (140-400); Red Cell Distribution Width 17.1 % (11.5-14.5)
[2020-12-22 04:29] LABS: White Blood Count 50.6 K/mcL (4.3-11.1)
[2020-12-22 05:00] LABS: Anisocytosis 1+ (Not Present); Neutrophils # 45.5 K/mcL (1.6-8.9); Platelet Estimate Normal (Normal); Poikilocytosis 1+ (Not Present); Reactive Lymphocytes Present (Not Present)
[2020-12-22 05:25] LABS: Alanine Aminotransferase 28 Units/L (7-52); Albumin 2.8 g/dL (3.5-5.7); Alkaline Phosphatase 111 Units/L (34-104); Aspartate Amino Transferase 26 Units/L (13-39); BUN/Creatinine Ratio 37 (6-26); Bilirubin,Direct 0.1 mg/dL (0.0-0.2); Bilirubin,Indirect 0.2 mg/dL (0.0-1.0); Bilirubin,Total 0.3 mg/dL (0.3-1.0); Blood Urea Nitrogen 34 mg/dL (8-23); Calcium 7.9 mg/dL (8.6-10.3); Carbon Dioxide 16 mEq/L (23-29); Chloride 118 mEq/L (98-107); Globulin 2.9 g/dL (2.4-3.5); Glucose 109 mg/dL (70-105); Magnesium 1.9 mg/dL (1.6-2.6); Osmolality,Calculated 310 (280-300); Phosphorous 2.9 mg/dL (2.7-4.5); Sodium 146 mEq/L (136-145); Total Protein 5.7 g/dL (6.4-8.9); eGFR For African Americans > 60 (> 60); eGFR For Non-African Americans > 60 (> 60)
[2020-12-22] MEDS: Ringers Solution, Lactated 1,000 ML IVC SCH ×2 (05:37→20:31)
[2020-12-22] MEDS ORDERED: cefTRIAXone 2,000 MG in Water for inj. (sterile) 10 ML IVP SCH (08:00)
[2020-12-22] MEDS ORDERED: lisinopriL 10 MG TABLET PO SCH (09:00)
[2020-12-22] MEDS: *HR* Heparin 5,000 UNIT/ML VIAL SQ SCH ×2 (09:04→16:14)
[2020-12-22 18:18] LABS: ABG Base Excess -8 mEq/L (-2 to 3); ABG HCO3 19 mEq/L (21-27); ABG Oxygen Saturation 84 % (95-98); ABG PCO2 42 mmHg (35-45); ABG PH 7.26 pH Units (7.32-7.45); ABG PO2 56 mmHg (85-104); ABG TCO2 20 mEq/L (20-26)
[2020-12-23] MEDS ORDERED: *HR* Dextrose 50 % in Water (Vial) 50 ML VIAL ONE (00:43)
[2020-12-23] MEDS ORDERED: *HR* Dextrose 50 % in Water (Vial) 50 ML VIAL IVP ONE (00:44)
[2020-12-23] MEDS ORDERED: Dextrose Gel 15 GM/37.5 ML TUBE PO PRN ×2 (00:58)
[2020-12-23] MEDS ORDERED: *HR* Dextrose 50 % in Water (Vial) 50 ML VIAL IVP PRN (00:58)
[2020-12-23] MEDS ORDERED: D5% in Water 1,000 ML IVC PRN (00:58)
[2020-12-23] MEDS ORDERED: D5% in Water 1,000 ML IVC ONE (00:59)
[2020-12-23] MEDS: *HR* Heparin 5,000 UNIT/ML VIAL SQ SCH (01:15)
[2020-12-23] MEDS ORDERED: *HR* Dextrose 50 % in Water (Vial) 50 ML VIAL IVP SCH (01:30)
[2020-12-23 06:38] LABS: Prothrombin Time 11.7 Seconds (9.4-12.1)
[2020-12-23 06:39] LABS: Activated Partial Thrombo Time 25.4 Seconds (26.0-36.0)
[2020-12-23 06:43] LABS: Nucleated Red Blood Cells 0.1 /100 WBC (0); Red Blood Count 3.29 M/mcL (3.82-4.97)
[2020-12-23 06:45] LABS: Hematocrit 29.2 % (35.3-44.9); Hemoglobin 8.6 g/dL (11.5-15.4); Mean Corpuscular HGB Conc 29.5 g/dL (31.6-35.5); Mean Corpuscular Hemoglobin 26.1 pg (28.0-33.3); Mean Corpuscular Volume 88.8 fL (83.0-100.0); Mean Platelet Volume 10.5 fL (9.4-12.4); Red Cell Distribution Width 17.8 % (11.5-14.5)
[2020-12-23 07:14] VITALS: BP 101/72; PULSE 91; TEMP 97.8; O2SAT 97
[2020-12-23] MEDS ORDERED: Isovue-370 500 ML BOTTLE IVP ONE (07:36)
[2020-12-23 07:42] LABS: Albumin 2.4 g/dL (3.5-5.7); Bilirubin,Indirect 0.2 mg/dL (0.0-1.0); Bilirubin,Total 0.2 mg/dL (0.3-1.0); Calcium 7.4 mg/dL (8.6-10.3); Globulin 2.4 g/dL (2.4-3.5); Magnesium 2.1 mg/dL (1.6-2.6); Phosphorous 2.7 mg/dL (2.7-4.5); Potassium 3.9 mEq/L (3.5-5.1); Total Protein 4.8 g/dL (6.4-8.9)
[2020-12-23] MEDS ORDERED: 0.9 % Sodium Chloride 1,000 ML IVC SCH (08:00)
[2020-12-23] MEDS ORDERED: Piperacillin/Tazobactam 3.375 GM in 0.9 % Sodium Chloride Mini Bag 100 ML IVPB SCH (08:00)
[2020-12-23 08:54] LABS: Platelet Count 55 K/mcL (140-400)
[2020-12-23 08:57] LABS: White Blood Count 41.1 K/mcL (4.3-11.1)
[2020-12-23 11:19] LABS: Lymphocytes # 0.8 K/mcL (0.6-4.6); Monocytes # 0.8 K/mcL (0.0-1.3); Neutrophils # 39.5 K/mcL (1.6-8.9)
[2020-12-23 11:20] LABS: Platelet Estimate Decreased (Normal)
[2020-12-27 08:07] LABS: Calculi Mass 55 mg
== END 2020-12-23 08:42 | disposition expired | DRG 853 ==
LOC: ICNU 05:38 → SUATTDRO 05:38 → 2NNU 12-21 09:46 → 3ANU 12-22 16:51
PROVIDERS: ADMIT Internal Medicine; ATTEND Internal Medicine